=== PATIENT | male | born 1950 | race Two or more races ===

== ENCOUNTER 2017-05-21 13:53 | Inpatient (IN) | payer OTHER ==
[2017-05-21 15:09] VITALS: BMI 19.8
--- NOTE | 2017-05-21 17:49 | HP ---
CIWA Score - CIWA Score Nausea/Vomitin-Mild Nausea/No Vomiting Muscle Tremors: 4-Moderate,w/Arms Extend Anxiety: 4-Mod. Anxious/Guarded Agitation: 4-Moderately Restless Paroxysmal Sweats: 1-Minimal Palms Moist Orientation: 1-Uncertain about Date Tacttile Disturbances: 0-None Auditory Disturbances: 0-None Visual Disturbances: 0-None Headache: 1-Very Mild CIWA-Ar Total Score: 16 Admission ROS BHS - HPI Chief Complaint: withdrawal sx Allergies/Adverse Reactions: Allergies Allergy/AdvReac Type Severity Reaction Status Date / Time Penicillins Allergy Severe Rash Verified 05/21/17 17:47 History of Present Illness: 67 years old male with long history of alcohol nicotine dependence has asthma left eye surgery x10 years go and depression is admitted to detox Exam Limitations: No Limitations - Ebola screening Have you traveled outside of the country in the last 21 days: No Have you had contact with anyone from an Ebola affected area: No Have you been sick,other than usual withdrawal symptoms: No Do you have a fever: No - Review of Systems Constitutional: Chills, Loss of Appetite, Changes in sleep, Unintentional Wgt. Loss, Unexplained wgt Loss EENT: reports: Blurred Vision (left eye glaucoma surgery x 10 years ago) Respiratory: reports: SOB with Exertion Cardiac: reports: No Symptoms Reported GI: reports: Nausea, Poor Appetite, Poor Fluid Intake, Abdominal cramping : reports: No Symptoms Reported Musculoskeletal: reports: Back Pain, Joint Pain (arthritis), Muscle Weakness ( legs cane) Integumentary: reports: Dryness Neuro: reports: Seizure (2013 alcohol withdrawal related), Tremors, Weakness ( legs) Endocrine: reports: No Symptoms Reported Hematology: reports: No Symptoms Reported Psychiatric: reports: Judgement Intact, Depressed Other Systems: Reviewed and Negative Patient History - Patient Medical History Hx Anemia: No Hx Asthma: Yes Hx Chronic Obstructive Pulmonary Disease (COPD): No Hx Cancer: No Hx Cardiac Disorders: No Hx Congestive Heart Failure: No Hx Hypertension: No Hx Hypercholesterolemia: No Hx Pacemaker: No HX Cerebrovascular Accident: No Hx Seizures: No Hx Dementia: No Hx Diabetes: No Hx Gastrointestinal Disorders: No Hx Liver Disease: No Hx Genitourinary Disorders: No Hx Sexually Transmitted Disorders: No Hx Renal Disease (ESRD): No Hx Thyroid Disease: No Hx Human Immunodeficiency Virus (HIV): No Hx Hepatitis C: No Hx Depression: Yes Hx Suicide Attempt: No Hx Bipolar Disorder: No Hx Schizophrenia: No - Patient Surgical History Past Surgical History: Yes Hx Neurologic Surgery: No Hx Cataract Extraction: Yes (L EYE X2 "glaucoma") Hx Cardiac Surgery: No Hx Lung Surgery: No Hx Breast Surgery: No Hx Breast Biopsy: No Hx Abdominal Surgery: No Hx Appendectomy: No Hx Cholecystectomy: No Hx Genitourinary Surgery: No Hx Orthopedic Surgery: No Anesthesia Reaction: No - PPD History Previous Implant?: Yes Documented Results: Negative w/proof Implanted On Prior [facility] Admission?: Yes Date: 07/19/16 PPD to be Administered?: No - Smoking Cessation Smoking history: Current every day smoker Have you smoked in the past 12 months: Yes Aproximately how many cigarettes per day: 20 Cigars Per Day: 0 Hx Chewing Tobacco Use: No Initiated information on smoking cessation: Yes 'Breaking Loose' booklet given: 05/21/17 - Substance & Tx. History Hx Alcohol Use: Yes Hx Substance Use: No Substance Use Type: Alcohol Hx Substance Use Treatment: Yes (09/04-09/08/17 [place]) - Substances Abused Alcohol Route: Oral Frequency: Daily Amount used: 2 6pks beer Age of first use: 13 Date of Last Use: 05/21/17 Family Disease History - Family Disease History Family Disease History: Other: Father (alcohol,), Brother (alcohol, ) Admission Physical Exam S - Vital Signs Vital Signs: Vital Signs - 24 hr 05/21/17 15:07 Temperature 98 F Pulse Rate 80 Respiratory 19 Rate Blood Pressure 104/65 - Physical General Appearance: Yes: Appropriately Dressed, Mild Distress, Alcohol on Breath , Thin, Tremorous, Irritable, Sweating, Anxious HEENTM: Yes: Hearing grossly Normal, Normal ENT Inspection, Normocephalic, Normal Voice Respiratory: Yes: Chest Non-Tender, No Respiratory Distress, No Accessory Muscle Use, Wheezing, Hyperresonant Neck: Yes: Supple, Trachea in good position Breast: Yes: Breasts Symetrical Cardiology: Yes: Regular Rhythm, Regular Rate, S1, S2 Abdominal: Yes: Non Tender, Soft Genitourinary: Yes: Within Normal Limits Back: Yes: Normal Inspection Musculoskeletal: Yes: Gait Steady (cane), Back pain, Muscle weakness (legs) Extremities: Yes: Normal Range of Motion, Non-Tender, Tremors Neurological: Yes: Alert, Motor Strength 5/5, Normal Response, Depressed Affect Integumentary: Yes: Dry, Warm Lymphatic: Yes: Within Normal Limits - Diagnostic (1) Alcohol dependence with uncomplicated withdrawal Current Visit: Yes Status: Acute (2) Nicotine dependence Current Visit: Yes Status: Acute Qualifiers: Nicotine product type: cigarettes Substance use status: in withdrawal Qualified Code(s): F17.213 - Nicotine dependence, cigarettes, with withdrawal (3) Arthritis Current Visit: Yes Status: Chronic (4) Asthma Current Visit: Yes Status: Chronic (5) Blindness of left eye Current Visit: Yes Status: Chronic Comment: X 20+ YEARS (6) Depression Current Visit: Yes Status: Suspected Qualifiers: Depression Type: dysthymia Qualified Code(s): F34.1 - Dysthymic disorder (7) Dry skin Current Visit: Yes Status: Acute Comment: EUCER[place] Cleared for Admission S - Detox or Rehab [facility] Level of Care: Medically Managed Detox Regimen/Protocol: Librium S Breath Alcohol Content Breath Alcohol Content: 0.166 Urine Drug Screen - Results Drug Screen Negative: Yes
[2017-05-21] MEDS ORDERED: NICOTINE POLACRILEX 4 MG GUM BC PRN (17:51)
[2017-05-21] MEDS ORDERED: LOPERAMIDE HCL 2 MG CAPSULE PO PRN (17:51)
[2017-05-21] MEDS ORDERED: chlordiazePOXIDE HCL 25 MG CAPSULE PO PRN (17:51)
[2017-05-21] MEDS ORDERED: diphenhydrAMINE HCL 50 MG CAPSULE PO PRN (17:51)
[2017-05-21] MEDS ORDERED: MENTHOL/PHENOL 1 EACH UD MM PRN (17:51)
[2017-05-21] MEDS ORDERED: P-EPHED 60MG/TRIPROLIDI 2.5MG TABLET PO PRN (17:51)
[2017-05-21] MEDS ORDERED: MAGNESIUM CITRATE 300 ML BOTTLE PO PRN (17:51)
[2017-05-21] MEDS ORDERED: hydrOXYzine PAMOATE 50 MG CAPSULE (FP) PO PRN (17:51)
[2017-05-21] MEDS ORDERED: MAGNESIUM HYDROX 2400MG/30ML ORAL SUSPENSION 30 ML CUP PO PRN (17:51)
[2017-05-21] MEDS ORDERED: ACETAMINOPHEN 325 MG TABLET (FP) PO PRN (17:51)
[2017-05-21] MEDS ORDERED: guaiFENesin/D-METHORPHAN HB 10 ML UNIT-DOSE CUPS PO PRN (17:51)
[2017-05-21] MEDS ORDERED: ALBUTEROL SO4 2.5/IPRATROPIUM 0.5 INH SOL 3 ML VIAL.NEB. NEB PRN (17:54)
[2017-05-21] MEDS: chlordiazePOXIDE HCL 25 MG CAPSULE PO SCH (22:19)
[2017-05-21] MEDS: THIAMINE HCL 100 MG TABLET (FP) PO SCH (22:20)
[2017-05-21] MEDS: MINERAL OIL/PETROLAT/WATER TOPICAL CREAM 113 GM JAR TP SCH (22:20)
[2017-05-21] MEDS: ALBUTEROL SO4 6.7 GM HFA INHALER IH PRN (22:23)
[2017-05-22 02:25] LABS: URINE APPEARANCE CLEAR; URINE BILIRUBIN NEGATIVE (NEGATIVE); URINE BLOOD NEGATIVE (NEGATIVE); URINE COLOR COLORLESS; URINE GLUCOSE (UA) NEGATIVE (NEGATIVE); URINE KETONE NEGATIVE (NEGATIVE); URINE LEUK ESTERASE NEGATIVE (NEGATIVE); URINE NITRITE NEGATIVE (NEGATIVE); URINE PROTEIN NEGATIVE (NEGATIVE); URINE UROBILINOGEN NEGATIVE E.U./dl (0.2-1.0)
[2017-05-22] MEDS: chlordiazePOXIDE HCL 25 MG CAPSULE PO SCH ×4 (05:21→22:20)
[2017-05-22 10:06] LABS: MCH 35.9 pg (25.7-33.7); MCHC 33.9 g/dl (32.0-35.9); MEAN CELL VOLUME 106.1 fl (80-96); MEAN PLT VOLUME 9.6 fl (7.5-11.1); PLATELET COUNT 121 K/MM3 (134-434); RDW 13.9 % (11.9-15.9); WHITE BLOOD COUNT 4.3 K/mm3 (4.0-10.0)
[2017-05-22 10:41] LABS: HIV 1 & 2 AB NEGATIVE; HIV 1 AGp24 NEGATIVE
[2017-05-22] MEDS: PRENATAL VITAMINS W/ FOLIC ACID TABLET (FP) PO SCH (10:54)
[2017-05-22] MEDS: IBUPROFEN 600 MG TABLET (FP) PO PRN (10:55)
[2017-05-22] MEDS: NICOTINE 21 MG/24 HOURS TOPICAL PATCH TD SCH (10:56)
[2017-05-22] MEDS: ALBUTEROL SO4 6.7 GM HFA INHALER IH PRN (10:57)
[2017-05-22 11:07] LABS: ALBUMIN 3.4 g/dl (3.4-5.0); ALK PHOS 108 U/L (45-117); ANION GAP 10 (8-16); BILIRUBIN,TOTAL 0.5 mg/dL (0.2-1.0); CALCIUM 8.5 mg/dL (8.5-10.1); CO2 27 mmol/L (21-32); CREATININE 0.6 mg/dL (0.7-1.3); GLUCOSE,RANDOM 149 mg/dL (74-106); SGOT/AST 63 U/L (15-37); SGPT/ALT 46 U/L (12-78); TOT PROT 6.6 g/dl (6.4-8.2)
[2017-05-22 11:15] LABS: PLATELET ESTIMATE SLT DECREASED (NORMAL)
--- NOTE | 2017-05-22 12:36 | EKG ---
Test Reason : Blood Pressure : / mmHG Vent. Rate : 074 BPM Atrial Rate : 074 BPM P-R Int : 134 ms QRS Dur : 110 ms QT Int : 400 ms P-R-T Axes : 077 063 059 degrees QTc Int : 444 ms NORMAL SINUS RHYTHM SEPTAL INFARCT , AGE UNDETERMINED ABNORMAL ECG NO PREVIOUS ECGS AVAILABLE Confirmed by LC WEINSTEIN MD ([id number]) on 05/22/2017 12:35:49 PM Referred By: Confirmed By:LC WEINSTEIN MD
--- NOTE | 2017-05-22 12:44 | PN ---
S CIWA - CIWA Score Nausea/Vomitin Muscle Tremors: 3 Anxiety: 3 Agitation: 3 Paroxysmal Sweats: 1-Minimal Palms Moist Orientation: 0-Oriented Tacttile Disturbances: 1-Very Mild Itch/Numbness Auditory Disturbances: 1-Very Mild Visual Disturbances: 1-Very Mild Sensitivity Headache: 2-Mild CIWA-Ar Total Score: 18 S Progress Note (SOAP) Subjective: ALERT,IRRITABLE,ANXIOUS,INTERRUPTED SLEEP,TREMOR Objective: 05/22/17 12:41 Vital Signs Temperature 98.4 F 05/22/17 09:32 Pulse Rate 96 H 05/22/17 09:32 Respiratory Rate 18 05/22/17 09:32 Blood Pressure 124/60 05/22/17 09:32 O2 Sat by Pulse Oximetry (%) EKG NSR NO CHEST PAIN,NO SOB,NO DIZZINESS 05/22/17 12:42 Laboratory Last Values WBC 4.3 K/mm3 (4.0-10.0) 05/22/17 06:00 RBC 3.80 M/mm3 (4.00-5.60) L 05/22/17 06:00 Hgb 13.7 GM/dL (11.7-16.9) D 05/22/17 06:00 Hct 40.3 % (35.4-49) 05/22/17 06:00 MCV 106.1 fl (80-96) H 05/22/17 06:00 MCHC 33.9 g/dl (32.0-35.9) 05/22/17 06:00 RDW 13.9 % (11.9-15.9) 05/22/17 06:00 Plt Count 121 K/MM3 (134-434) L D 05/22/17 06:00 MPV 9.6 fl (7.5-11.1) 05/22/17 06:00 Platelet Estimate Slt decreased (NORMAL) 05/22/17 06:00 Platelet Comment No clumping noted 05/22/17 06:00 Macrocytosis 1+ 05/22/17 06:00 Sodium 139 mmol/L (136-145) 05/22/17 06:00 Potassium 4.0 mmol/L (3.5-5.1) 05/22/17 06:00 Chloride 102 mmol/L (98-107) 05/22/17 06:00 Carbon Dioxide 27 mmol/L (21-32) 05/22/17 06:00 Anion Gap 10 (8-16) 05/22/17 06:00 BUN 6 mg/dL (7-18) L D 05/22/17 06:00 Creatinine 0.6 mg/dL (0.7-1.3) L D 05/22/17 06:00 Creat Clearance w eGFR > 60 (>60) 05/22/17 06:00 Random Glucose 149 mg/dL (74-106) H D 05/22/17 06:00 Calcium 8.5 mg/dL (8.5-10.1) 05/22/17 06:00 Total Bilirubin 0.5 mg/dL (0.2-1.0) D 05/22/17 06:00 AST 63 U/L (15-37) H D 05/22/17 06:00 ALT 46 U/L (12-78) D 05/22/17 06:00 Alkaline Phosphatase 108 U/L (45-117) D 05/22/17 06:00 Total Protein 6.6 g/dl (6.4-8.2) 05/22/17 06:00 Albumin 3.4 g/dl (3.4-5.0) 05/22/17 06:00 Urine Color Colorless 05/22/17 00:30 Urine Appearance Clear 05/22/17 00:30 Urine pH 5.0 (5.0-8.0) 05/22/17 00:30 Ur Specific [place] <= 1.005 (1.005-1.025) 05/22/17 00:30 Urine Protein Negative (NEGATIVE) 05/22/17 00:30 Urine Glucose (UA) Negative (NEGATIVE) 05/22/17 00:30 Urine Ketones Negative (NEGATIVE) 05/22/17 00:30 Urine Blood Negative (NEGATIVE) 05/22/17 00:30 Urine Nitrite Negative (NEGATIVE) 05/22/17 00:30 Urine Bilirubin Negative (NEGATIVE) 05/22/17 00:30 Urine Urobilinogen Negative E.U./dl (0.2-1.0) 05/22/17 00:30 Ur Leukocyte Esterase Negative (NEGATIVE) 05/22/17 00:30 RPR Titer Nonreactive (NONREACTIVE) 05/22/17 06:00 HIV 1&2 Antibody Screen Negative 05/21/17 06:00 HIV P24 Antigen Negative 05/21/17 06:00 Assessment: 05/22/17 12:43 WITHDRAWAL SYMPTOM Plan: CONTINUE DETOX
--- NOTE | 2017-05-22 13:10 | CONSULT ---
[facility] Psychiatric Consult - Data Date of interview: 05/22/17 Admission source: [facility] Identifying data: This is 67 years old male with no psychiatric hospiutalization history intoxicated with: Alcohol and Nicotine Substance Abuse History: - Smoking Cessation. Smoking history: Current every day smoker. Have you smoked in the past 12 months: Yes. Aproximately how many cigarettes per day: 20. Cigars Per Day: 0. Hx Chewing Tobacco Use: No. Initiated information on smoking cessation: Yes. 'Breaking Loose' booklet given : 05/21/17. - Substance & Tx. History. Hx Alcohol Use: Yes. Hx Substance Use : No. Substance Use Type: Alcohol. Hx Substance Use Treatment: Yes (09/04- [place]). - Substances Abused. Alcohol. Route: Oral. Frequency: Daily. Amount used: 2 6pks beer. Age of first use: 13. Date of Last Use: Medical History: Osteoarthritis, Asthma, Left eye blindness, Syncope history Psychiatric History: Patient reports history of insomnia and anxiety, reports taking priormto admission: Ambien 10mg po qhs Physical/Sexual Abuse/Trauma History: Denies Additional Comment: Ambien 10mg po qhs Mental Status Exam - Mental Status Exam Cognitive Function: Fair Patient Appearance: Unkempt Mood: Sad Affect: Flat Patient Behavior: Talkative Speech Pattern: Delayed Voice Loudness: Normal Thought Process: Circumstantial Thought Disorder: Being Controlled Hallucinations: Denies Suicidal Ideation: Denies Homicidal Ideation: Denies Insight/Judgement: Fair Sleep: Difficulty falling asleep Appetite: Weight loss Muscle strength/Tone: Mild Hypotonicity Gait/Station: Shuffling Additional Comments: Ambien 10mg po qhs Psychiatric Findings - Problem List ([place] 1, 2,3) (1) Alcohol dependence with uncomplicated withdrawal Current Visit: Yes Status: Acute (2) Nicotine dependence Current Visit: Yes Status: Acute Qualifiers: Nicotine product type: cigarettes Substance use status: in withdrawal Qualified Code(s): F17.213 - Nicotine dependence, cigarettes, with withdrawal (3) Alcohol dependence Current Visit: No Status: Acute (4) Drug-induced mood disorder Current Visit: No Status: Suspected - Initial Treatment Plan Initial Treatment Plan: Ambien 10mg po qhs
[2017-05-22] MEDS: MAG HYDROX/AL HYDROX/SIMETH 30 ML UNIT-DOSE CUP PO PRN (18:28)
[2017-05-22] MEDS: MINERAL OIL/PETROLAT/WATER TOPICAL CREAM 113 GM JAR TP SCH (22:20)
[2017-05-22] MEDS: THIAMINE HCL 100 MG TABLET (FP) PO SCH (22:21)
[2017-05-22] MEDS: ZOLPIDEM TARTRATE 5 MG TABLET PO PRN (22:22)
[2017-05-23] MEDS: chlordiazePOXIDE HCL 25 MG CAPSULE PO SCH ×3 (06:02→17:13)
[2017-05-23] MEDS: ALBUTEROL SO4 6.7 GM HFA INHALER IH PRN ×3 (06:03→22:21)
[2017-05-23] MEDS: PRENATAL VITAMINS W/ FOLIC ACID TABLET (FP) PO SCH (10:27)
[2017-05-23] MEDS: NICOTINE 21 MG/24 HOURS TOPICAL PATCH TD SCH (10:28)
--- NOTE | 2017-05-23 10:56 | PN ---
S CIWA - CIWA Score Nausea/Vomitin Muscle Tremors: 3 Anxiety: 3 Agitation: 3 Paroxysmal Sweats: 1-Minimal Palms Moist Orientation: 0-Oriented Tacttile Disturbances: 1-Very Mild Itch/Numbness Auditory Disturbances: 1-Very Mild Visual Disturbances: 1-Very Mild Sensitivity Headache: 2-Mild CIWA-Ar Total Score: 18 S Progress Note (SOAP) Subjective: ALERT,IRRITABLE,ANXIOUS,INTERRUPTED SLEEP,TREMOR,IRRITATION IN LEFT EYE S/P SURGERY IN LEFT EYE GLAUCOMA LEGALLY BLIND LEFT FC HAS BEEN FOLLOW WITH PMD AND CHIEF EXECUTIVE OFFICER AT [facility] Objective: 05/23/17 10:55 Vital Signs Temperature 96.6 F L 05/23/17 06:00 Pulse Rate 75 05/23/17 06:00 Respiratory Rate 18 05/23/17 06:00 Blood Pressure 103/68 05/23/17 06:00 O2 Sat by Pulse Oximetry (%) Laboratory Last Values WBC 4.3 K/mm3 (4.0-10.0) 05/22/17 06:00 RBC 3.80 M/mm3 (4.00-5.60) L 05/22/17 06:00 Hgb 13.7 GM/dL (11.7-16.9) D 05/22/17 06:00 Hct 40.3 % (35.4-49) 05/22/17 06:00 MCV 106.1 fl (80-96) H 05/22/17 06:00 MCHC 33.9 g/dl (32.0-35.9) 05/22/17 06:00 RDW 13.9 % (11.9-15.9) 05/22/17 06:00 Plt Count 121 K/MM3 (134-434) L D 05/22/17 06:00 MPV 9.6 fl (7.5-11.1) 05/22/17 06:00 Platelet Estimate Slt decreased (NORMAL) 05/22/17 06:00 Platelet Comment No clumping noted 05/22/17 06:00 Macrocytosis 1+ 05/22/17 06:00 Sodium 139 mmol/L (136-145) 05/22/17 06:00 Potassium 4.0 mmol/L (3.5-5.1) 05/22/17 06:00 Chloride 102 mmol/L (98-107) 05/22/17 06:00 Carbon Dioxide 27 mmol/L (21-32) 05/22/17 06:00 Anion Gap 10 (8-16) 05/22/17 06:00 BUN 6 mg/dL (7-18) L D 05/22/17 06:00 Creatinine 0.6 mg/dL (0.7-1.3) L D 05/22/17 06:00 Creat Clearance w eGFR > 60 (>60) 05/22/17 06:00 Random Glucose 149 mg/dL (74-106) H D 05/22/17 06:00 Calcium 8.5 mg/dL (8.5-10.1) 05/22/17 06:00 Total Bilirubin 0.5 mg/dL (0.2-1.0) D 05/22/17 06:00 AST 63 U/L (15-37) H D 05/22/17 06:00 ALT 46 U/L (12-78) D 05/22/17 06:00 Alkaline Phosphatase 108 U/L (45-117) D 05/22/17 06:00 Total Protein 6.6 g/dl (6.4-8.2) 05/22/17 06:00 Albumin 3.4 g/dl (3.4-5.0) 05/22/17 06:00 Urine Color Colorless 05/22/17 00:30 Urine Appearance Clear 05/22/17 00:30 Urine pH 5.0 (5.0-8.0) 05/22/17 00:30 Ur Specific [place] <= 1.005 (1.005-1.025) 05/22/17 00:30 Urine Protein Negative (NEGATIVE) 05/22/17 00:30 Urine Glucose (UA) Negative (NEGATIVE) 05/22/17 00:30 Urine Ketones Negative (NEGATIVE) 05/22/17 00:30 Urine Blood Negative (NEGATIVE) 05/22/17 00:30 Urine Nitrite Negative (NEGATIVE) 05/22/17 00:30 Urine Bilirubin Negative (NEGATIVE) 05/22/17 00:30 Urine Urobilinogen Negative E.U./dl (0.2-1.0) 05/22/17 00:30 Ur Leukocyte Esterase Negative (NEGATIVE) 05/22/17 00:30 RPR Titer Nonreactive (NONREACTIVE) 05/22/17 06:00 Hepatitis C Antibody <0.1 s/co ratio (0.0-0.9) 05/21/17 06:00 HIV 1&2 Antibody Screen Negative 05/21/17 06:00 HIV P24 Antigen Negative 05/21/17 06:00 Assessment: 05/23/17 10:56 WITHDRAWAL SYMPTOM Plan: CONTINUE DETOX,ARTIFICIAL TEAR DROP LEFT TID
[2017-05-23] MEDS: ARTIFICIAL TEARS (POLYVINYL ALCOHOL 1.4%) OPTH DROPS OS SCH ×3 (13:51→22:16)
[2017-05-23] MEDS: IBUPROFEN 600 MG TABLET (FP) PO PRN ×2 (15:19→22:18)
[2017-05-23] MEDS: MAG HYDROX/AL HYDROX/SIMETH 30 ML UNIT-DOSE CUP PO PRN (18:32)
[2017-05-23] MEDS: chlordiazePOXIDE 5 MG CAPSULE PO SCH (22:17)
[2017-05-23] MEDS: THIAMINE HCL 100 MG TABLET (FP) PO SCH (22:17)
[2017-05-23] MEDS: MINERAL OIL/PETROLAT/WATER TOPICAL CREAM 113 GM JAR TP SCH (22:19)
[2017-05-23] MEDS: ZOLPIDEM TARTRATE 5 MG TABLET PO PRN (22:22)
[2017-05-24] MEDS: chlordiazePOXIDE 5 MG CAPSULE PO SCH ×3 (05:36→17:29)
[2017-05-24] MEDS: ALBUTEROL SO4 6.7 GM HFA INHALER IH PRN (05:37)
[2017-05-24] MEDS: PRENATAL VITAMINS W/ FOLIC ACID TABLET (FP) PO SCH (10:17)
[2017-05-24] MEDS: NICOTINE 21 MG/24 HOURS TOPICAL PATCH TD SCH (10:18)
[2017-05-24] MEDS: IBUPROFEN 600 MG TABLET (FP) PO PRN ×2 (10:19→22:21)
[2017-05-24] MEDS: ARTIFICIAL TEARS (POLYVINYL ALCOHOL 1.4%) OPTH DROPS OS SCH ×4 (10:20→22:07)
--- NOTE | 2017-05-24 10:34 | PN ---
S Progress Note (SOAP) Subjective: ALERT,IRRITABLE,ANXIOUS,INTERRUPTED SLEEP Objective: 05/24/17 10:32 Vital Signs Temperature 97.9 F 05/24/17 10:12 Pulse Rate 76 05/24/17 10:12 Respiratory Rate 18 05/24/17 10:12 Blood Pressure 113/70 05/24/17 10:12 O2 Sat by Pulse Oximetry (%) Assessment: 05/24/17 10:32 WITHDRAWAL SYMPTOM Plan: CONTINUE DETOX,DISCHARGE IN AM
[2017-05-24] MEDS: MAG HYDROX/AL HYDROX/SIMETH 30 ML UNIT-DOSE CUP PO PRN (15:05)
[2017-05-24] MEDS: chlordiazePOXIDE HCL 10 MG CAPSULE PO SCH (22:07)
[2017-05-24] MEDS: ZOLPIDEM TARTRATE 5 MG TABLET PO PRN (22:07)
[2017-05-24] MEDS: THIAMINE HCL 100 MG TABLET (FP) PO SCH (22:07)
[2017-05-24] MEDS: MINERAL OIL/PETROLAT/WATER TOPICAL CREAM 113 GM JAR TP SCH (22:16)
[2017-05-25 05:57] VITALS: BP 120/67; PULSE 72; TEMP 96.3
[2017-05-25] MEDS: chlordiazePOXIDE HCL 10 MG CAPSULE PO SCH (06:15)
--- NOTE | 2017-05-25 12:40 | DS ---
[facility] Detox Discharge Summary Admission Date: 05/21/17 Discharge Date: 05/25/17 - History Present History: Alcohol Dependence Additional Comments: ADVISED PATIENT TO FOLLOW-UP WITH [facility] / REHAB MEDICAL PROVIDER AFTER DISCHARGE FROM [facility]. Pertinent Past History: Asthma, Depression, Arthritis, Blindness of Left Eye. - Physical Exam Results Vital Signs: Vital Signs Temperature 96.3 F L 05/25/17 05:56 Pulse Rate 72 05/25/17 05:56 Respiratory Rate 18 05/25/17 05:56 Blood Pressure 120/67 05/25/17 05:56 O2 Sat by Pulse Oximetry (%) Pertinent Admission Physical Exam Findings: WITHDRAWAL SYMPTOMS. Laboratory Tests 05/21/17 05/21/17 05/22/17 06:00 06:00 00:30 WBC RBC Hgb Hct MCV MCHC RDW Plt Count MPV Platelet Estimate Platelet Comment Macrocytosis Sodium Potassium Chloride Carbon Dioxide Anion Gap BUN Creatinine Creat Clearance w eGFR Random Glucose Calcium Total Bilirubin AST ALT Alkaline Phosphatase Total Protein Albumin Urine Color Colorless Urine Appearance Clear Urine pH 5.0 Ur Specific [place] <= 1.005 Urine Protein Negative Urine Glucose (UA) Negative Urine Ketones Negative Urine Blood Negative Urine Nitrite Negative Urine Bilirubin Negative Urine Urobilinogen Negative Ur Leukocyte Esterase Negative RPR Titer Hepatitis C Antibody <0.1 HIV 1&2 Antibody Screen Negative HIV P24 Antigen Negative 05/22/17 05/22/17 05/22/17 06:00 06:00 06:00 WBC 4.3 RBC 3.80 L Hgb 13.7 D Hct 40.3 MCV 106.1 H MCHC 33.9 RDW 13.9 Plt Count 121 L D MPV 9.6 Platelet Estimate Slt decreased Platelet Comment No clumping noted Macrocytosis 1+ Sodium 139 Potassium 4.0 Chloride 102 Carbon Dioxide 27 Anion Gap 10 BUN 6 L D Creatinine 0.6 L D Creat Clearance w eGFR > 60 Random Glucose 149 H D Calcium 8.5 Total Bilirubin 0.5 D AST 63 H D ALT 46 D Alkaline Phosphatase 108 D Total Protein 6.6 Albumin 3.4 Urine Color Urine Appearance Urine pH Ur Specific [place] Urine Protein Urine Glucose (UA) Urine Ketones Urine Blood Urine Nitrite Urine Bilirubin Urine Urobilinogen Ur Leukocyte Esterase RPR Titer Nonreactive Hepatitis C Antibody HIV 1&2 Antibody Screen HIV P24 Antigen LABS NOTED. - Treatment Hospital Course: Detox Protocol Followed, Detoxed Safely, Responded well, Discharged Condition Good Patient has Accepted a Rehab Referral to: PATIENT GOING HOME NOW. WILL PURSUE REHAB ADMISSION AT LATER DATE. - Medication Discharge Medications: Ambulatory Orders Albuterol Sulfate Inhaler - [Ventolin HFA Inhaler -] 2 inh IH Q4H PRN #1 inhaler 05/25/17 - Diagnosis (1) Alcohol dependence with uncomplicated withdrawal Status: Acute (2) Dry skin Status: Acute (3) Arthritis Status: Chronic (4) Asthma Status: Chronic (5) Blindness of left eye Status: Chronic (6) Drug-induced mood disorder Status: Suspected (7) Nicotine dependence Status: Chronic Qualifiers: Nicotine product type: cigarettes Substance use status: in withdrawal Qualified Code(s): F17.213 - Nicotine dependence, cigarettes, with withdrawal - AMA Did Patient Leave Against Medical Advice: No
== END 2017-05-25 09:28 | disposition home or self-care (01) | DRG 897 ==
LOC: YASAS 13:53 → Y6N 18:06
PROVIDERS: ADMIT Internal Medicine; ATTEND Internal Medicine
PROC: HZ2ZZZZ Detoxification Services for Substance Abuse Treatment (ICD-10-PCS; principal; 2017-05-25)
DX: F10.230 Alcohol dependence with withdrawal, uncomplicated (principal); F17.213 Nicotine dependence, cigarettes, with withdrawal; F19.24 Other psychoactive substance dependence with psychoactive substance-induced mood disorder; F34.1 Dysthymic disorder; M12.9 Arthropathy, unspecified; J45.909 Unspecified asthma, uncomplicated; L85.3 Xerosis cutis; H54.42 Blindness, left eye, normal vision right eye
CPT/HCPCS: 36415; 80053; 81003; 85027; 86593; 86803; 87389; 93005; 93010

== ENCOUNTER 2017-10-21 09:45 | Inpatient (IN) | payer OTHER ==
[2017-10-21 10:49] VITALS: BMI 19.8
--- NOTE | 2017-10-21 12:08 | HP ---
CIWA Score - CIWA Score Nausea/Vomitin-No Nausea/No Vomiting Muscle Tremors: 4-Moderate,w/Arms Extend Anxiety: 3 Agitation: 3 Paroxysmal Sweats: 3 Orientation: 0-Oriented Tacttile Disturbances: 0-None Auditory Disturbances: 0-None Visual Disturbances: 0-None Headache: 1-Very Mild CIWA-Ar Total Score: 14 Admission ROS BHS - HPI Chief Complaint: I am here for detox. Allergies/Adverse Reactions: Allergies Allergy/AdvReac Type Severity Reaction Status Date / Time Penicillins Allergy Severe Rash Verified 10/21/17 11:10 History of Present Illness: pt is a 67yr old male with a history of alcohol dependence seeking detox for treatment. Exam Limitations: No Limitations - Ebola screening Have you traveled outside of the country in the last 21 days: No (N) Have you had contact with anyone from an Ebola affected area: No Have you been sick,other than usual withdrawal symptoms: No Do you have a fever: No - Review of Systems Constitutional: Chills, Diaphoresis, Loss of Appetite, Night Sweats, Changes in sleep, Weight Stable EENT: reports: No Symptoms Reported, Tearing Respiratory: reports: No Symptoms reported Cardiac: reports: No Symptoms Reported GI: reports: No Symptoms Reported : reports: No Symptoms Reported Musculoskeletal: reports: Joint Pain, Other (chronic arthritis) Integumentary: reports: Flushing, Sweating Neuro: reports: Tingling, Tremors Endocrine: reports: Excessive Sweating, Flushing Hematology: reports: No Symptoms Reported Psychiatric: reports: Judgement Intact, Mood/Affect Appropiate, Orientated x3, Agitated, Anxious Other Systems: Reviewed and Negative Patient History - Patient Medical History Hx Anemia: No Hx Asthma: Yes (Pt is on MDI) Hx Chronic Obstructive Pulmonary Disease (COPD): No Hx Cancer: No Hx Cardiac Disorders: No Hx Congestive Heart Failure: No Hx Hypertension: No Hx Hypercholesterolemia: No Hx Pacemaker: No HX Cerebrovascular Accident: No Hx Seizures: No Hx Dementia: No Hx Diabetes: No Hx Gastrointestinal Disorders: No Hx Liver Disease: No Hx Genitourinary Disorders: No Hx Sexually Transmitted Disorders: No Hx Renal Disease (ESRD): No Hx Thyroid Disease: No Hx Human Immunodeficiency Virus (HIV): No (negative) Hx Hepatitis C: No (negative) Hx Depression: No Hx Suicide Attempt: No Hx Bipolar Disorder: No Hx Schizophrenia: No Other Medical History: insomnia - Patient Surgical History Past Surgical History: Yes Hx Neurologic Surgery: No Hx Cataract Extraction: Yes (L EYE X2 "glaucoma") Hx Cardiac Surgery: No Hx Lung Surgery: No Hx Breast Surgery: No Hx Breast Biopsy: No Hx Abdominal Surgery: No Hx Appendectomy: No Hx Cholecystectomy: No Hx Genitourinary Surgery: No Hx Section: No Hx Orthopedic Surgery: No Anesthesia Reaction: No - PPD History Previous Implant?: Yes Documented Results: Negative w/proof Implanted On Prior [facility] Admission?: Yes Date: 07/19/16 Results: 0 mm PPD to be Administered?: No - Reproductive History Patient is a Female of Child Bearing Age (11 -55 yrs old): No - Smoking Cessation Smoking history: Current every day smoker Have you smoked in the past 12 months: Yes Aproximately how many cigarettes per day: 20 Cigars Per Day: 0 Hx Chewing Tobacco Use: No Initiated information on smoking cessation: Yes 'Breaking Loose' booklet given: 10/21/17 - Substance & Tx. History Hx Alcohol Use: Yes Hx Substance Use: No Substance Use Type: Alcohol Hx Substance Use Treatment: Yes (07/2016 [facility] detox ) - Substances Abused Alcohol Route: Oral Frequency: Daily Amount used: 10 beers and up Age of first use: 13 Date of Last Use: 10/21/17 Family Disease History - Family Disease History Family Disease History: Other: Father (alcohol,), Brother (alcohol, ) Admission Physical Exam BHS - Vital Signs Vital Signs: Vital Signs - 24 hr 10/21/17 10:47 Temperature 98.1 F Pulse Rate 75 Respiratory 18 Rate Blood Pressure 113/74 - Physical General Appearance: Yes: Appropriately Dressed, Tremorous, Irritable, Sweating, Anxious HEENTM: Yes: Hearing grossly Normal, Normal Voice Respiratory: Yes: Lungs Clear, Normal Breath Sounds, No Respiratory Distress Neck: Yes: No masses,lesions,Nodules Breast: Yes: Within Normal Limits Cardiology: Yes: Regular Rhythm, Regular Rate, S1, S2 Abdominal: Yes: Normal Bowel Sounds Genitourinary: Yes: Within Normal Limits Back: Yes: Normal Inspection Musculoskeletal: Yes: full range of Motion Extremities: Yes: Normal Capillary Refill, Normal Inspection, Tremors Neurological: Yes: Fully Oriented, Alert, Normal Response Integumentary: Yes: Within Normal Limits, Normal Color, Diaphoresis Lymphatic: Yes: Within Normal Limits - Diagnostic (1) Alcohol dependence with uncomplicated withdrawal Current Visit: Yes Status: Chronic (2) Arthritis Current Visit: Yes Status: Chronic (3) Asthma Current Visit: Yes Status: Chronic (4) Blindness of left eye Current Visit: No Status: Chronic Comment: X 20+ YEARS (5) Nicotine dependence Current Visit: No Status: Chronic Qualifiers: Nicotine product type: cigarettes Substance use status: uncomplicated Qualified Code(s): F17.210 - Nicotine dependence, cigarettes, uncomplicated Cleared for Admission [facility] - Detox or Rehab [facility] Level of Care: Medically Managed Detox Regimen/Protocol: Librium S Breath Alcohol Content Breath Alcohol Content: 0.068 Urine Drug Screen - Results Drug Screen Negative: Yes
[2017-10-21] MEDS ORDERED: guaiFENesin/D-METHORPHAN HB 10 ML UNIT-DOSE CUPS PO PRN (12:24)
[2017-10-21] MEDS ORDERED: P-EPHED 60MG/TRIPROLIDI 2.5MG TABLET PO PRN (12:24)
[2017-10-21] MEDS ORDERED: chlordiazePOXIDE HCL 25 MG CAPSULE PO PRN (12:24)
[2017-10-21] MEDS ORDERED: LOPERAMIDE HCL 2 MG CAPSULE PO PRN (12:24)
[2017-10-21] MEDS ORDERED: MENTHOL/PHENOL 1 EACH UD MM PRN (12:24)
[2017-10-21] MEDS ORDERED: ACETAMINOPHEN 325 MG TABLET (FP) PO PRN (12:24)
[2017-10-21] MEDS ORDERED: MAGNESIUM HYDROX 2400MG/30ML ORAL SUSPENSION 30 ML CUP PO PRN (12:24)
[2017-10-21] MEDS ORDERED: MAGNESIUM CITRATE 300 ML BOTTLE PO PRN (12:24)
[2017-10-21] MEDS ORDERED: NICOTINE POLACRILEX 4 MG GUM BUC PRN (12:24)
[2017-10-21] MEDS ORDERED: hydrOXYzine PAMOATE 50 MG CAPSULE (FP) PO PRN (12:24)
[2017-10-21] MEDS ORDERED: chlordiazePOXIDE HCL 25 MG CAPSULE PO ONE (12:31)
[2017-10-21] MEDS: chlordiazePOXIDE HCL 25 MG CAPSULE PO SCH ×2 (17:20→22:23)
[2017-10-21 18:01] LABS: URINE APPEARANCE SLCLOUDY; URINE BILIRUBIN NEGATIVE (NEGATIVE); URINE BLOOD NEGATIVE (NEGATIVE); URINE COLOR YELLOW; URINE GLUCOSE (UA) NEGATIVE (NEGATIVE); URINE KETONE NEGATIVE (NEGATIVE); URINE NITRITE NEGATIVE (NEGATIVE); URINE PROTEIN NEGATIVE (NEGATIVE); URINE UROBILINOGEN NEGATIVE mg/dL (0.2-1.0)
[2017-10-21 21:51] LABS: URINE LEUK ESTERASE Negative (NEGATIVE)
[2017-10-21] MEDS: THIAMINE HCL 100 MG TABLET (FP) PO SCH (22:23)
[2017-10-21] MEDS: ALBUTEROL SO4 18 GM HFA INHALER IH PRN (22:25)
[2017-10-22] MEDS: chlordiazePOXIDE HCL 25 MG CAPSULE PO SCH ×4 (05:44→22:01)
[2017-10-22 09:57] LABS: MCH 36.2 pg (25.7-33.7); MCHC 33.4 g/dl (32.0-35.9); MEAN CELL VOLUME 108.5 fl (80-96); MEAN PLT VOLUME 9.4 fl (7.5-11.1); PLATELET COUNT 188 K/MM3 (134-434); RDW 13.9 % (11.9-15.9); WHITE BLOOD COUNT 5.7 K/mm3 (4.0-10.0)
--- NOTE | 2017-10-22 10:13 | EKG ---
Test Reason : Blood Pressure : / mmHG Vent. Rate : 071 BPM Atrial Rate : 071 BPM P-R Int : 128 ms QRS Dur : 100 ms QT Int : 384 ms P-R-T Axes : 069 050 062 degrees QTc Int : 417 ms NORMAL SINUS RHYTHM NORMAL ECG WHEN COMPARED WITH ECG OF 21-MAY-2017 17:45, CRITERIA FOR SEPTAL INFARCT ARE NO LONGER PRESENT Confirmed by GRAY DELGADO MD ([id number]) on 10/22/2017 10:13:17 AM Referred By: Confirmed By:GRAY DELGADO MD
[2017-10-22 10:36] LABS: ALBUMIN 3.3 g/dl (3.4-5.0); ALK PHOS 100 U/L (45-117); ANION GAP 9 (8-16); BILIRUBIN,TOTAL 0.6 mg/dL (0.2-1.0); CALCIUM 8.2 mg/dL (8.5-10.1); CO2 27 mmol/L (21-32); CREATININE 0.6 mg/dL (0.7-1.3); GLUCOSE,RANDOM 146 mg/dL (74-106); SGOT/AST 27 U/L (15-37); SGPT/ALT 23 U/L (12-78); TOT PROT 6.4 g/dl (6.4-8.2)
--- NOTE | 2017-10-22 10:45 | PN ---
[facility] CIWA - CIWA Score Nausea/Vomitin-No Nausea/No Vomiting Muscle Tremors: 4-Moderate,w/Arms Extend Anxiety: 4-Mod. Anxious/Guarded Agitation: 4-Moderately Restless Paroxysmal Sweats: 1-Minimal Palms Moist Orientation: 0-Oriented Tacttile Disturbances: 3-Moderate Itch/Numb/Burn Auditory Disturbances: 0-None Visual Disturbances: 0-None Headache: 0-None Present CIWA-Ar Total Score: 16 BHS Progress Note (SOAP) Subjective: ANXIETY,SWEATS,SLIGHT TREMORS, INTERMITTENT SLEEP. Objective: 10/22/17 10:44 Vital Signs Temperature 96.8 F L 10/22/17 09:53 Pulse Rate 80 10/22/17 09:53 Respiratory Rate 18 10/22/17 09:53 Blood Pressure 79/55 10/22/17 09:53 O2 Sat by Pulse Oximetry (%) Laboratory Last Values WBC 5.7 K/mm3 (4.0-10.0) D 10/22/17 05:30 RBC 3.54 M/mm3 (4.00-5.60) L 10/22/17 05:30 Hgb 12.8 GM/dL (11.7-16.9) 10/22/17 05:30 Hct 38.4 % (35.4-49) 10/22/17 05:30 MCV 108.5 fl (80-96) H 10/22/17 05:30 MCH 36.2 pg (25.7-33.7) H 10/22/17 05:30 MCHC 33.4 g/dl (32.0-35.9) 10/22/17 05:30 RDW 13.9 % (11.9-15.9) 10/22/17 05:30 Plt Count 188 K/MM3 (134-434) D 10/22/17 05:30 MPV 9.4 fl (7.5-11.1) 10/22/17 05:30 Sodium 139 mmol/L (136-145) 10/22/17 05:30 Potassium 4.0 mmol/L (3.5-5.1) 10/22/17 05:30 Chloride 103 mmol/L (98-107) 10/22/17 05:30 Carbon Dioxide 27 mmol/L (21-32) 10/22/17 05:30 Anion Gap 9 (8-16) 10/22/17 05:30 BUN 8 mg/dL (7-18) D 10/22/17 05:30 Creatinine 0.6 mg/dL (0.7-1.3) L 10/22/17 05:30 Creat Clearance w eGFR > 60 (>60) 10/22/17 05:30 Random Glucose 146 mg/dL (74-106) H 10/22/17 05:30 Calcium 8.2 mg/dL (8.5-10.1) L 10/22/17 05:30 Total Bilirubin 0.6 mg/dL (0.2-1.0) 10/22/17 05:30 AST 27 U/L (15-37) D 10/22/17 05:30 ALT 23 U/L (12-78) D 10/22/17 05:30 Alkaline Phosphatase 100 U/L (45-117) 10/22/17 05:30 Total Protein 6.4 g/dl (6.4-8.2) 10/22/17 05:30 Albumin 3.3 g/dl (3.4-5.0) L 10/22/17 05:30 Urine Color Yellow 10/21/17 15:30 Urine Appearance Slcloudy 10/21/17 15:30 Urine pH 5.0 (5.0-8.0) 10/21/17 15:30 Ur Specific [place] 1.016 (1.001-1.035) 10/21/17 15:30 Urine Protein Negative (NEGATIVE) 10/21/17 15:30 Urine Glucose (UA) Negative (NEGATIVE) 10/21/17 15:30 Urine Ketones Negative (NEGATIVE) 10/21/17 15:30 Urine Blood Negative (NEGATIVE) 10/21/17 15:30 Urine Nitrite Negative (NEGATIVE) 10/21/17 15:30 Urine Bilirubin Negative (NEGATIVE) 10/21/17 15:30 Urine Urobilinogen Negative mg/dL (0.2-1.0) 10/21/17 15:30 Ur Leukocyte Esterase Negative (NEGATIVE) 10/21/17 15:30 Assessment: 10/22/17 10:45 WITHDRAWAL SX Plan: CONTINUE DETOX
[2017-10-22] MEDS: PRENATAL VITAMINS W/ FOLIC ACID TABLET (FP) PO SCH (11:22)
[2017-10-22] MEDS: NICOTINE 21 MG/24 HOURS TOPICAL PATCH TD SCH (11:22)
--- NOTE | 2017-10-22 14:18 | CONSULT ---
[facility] Psychiatric Consult - Data Date of interview: 10/22/17 Admission source: [facility] Identifying data: Readmission to [facility] for this 67 y/o male seeking detox treatment on for alcohol dependence.Patient is single,a father of two,domiciled,disabled and supported on SSI benefits. Substance Abuse History: Confirmed by patient in this interview. See [facility] report for details.Smoking history: Current every day smoker. Have you smoked in the past 12 months: Yes. Aproximately how many cigarettes per day: 20. Cigars Per Day: 0. Hx Chewing Tobacco Use: No. Initiated information on smoking cessation: Yes. 'Breaking Loose' booklet given: 10/21/17. - Substance & Tx. History. Hx Alcohol Use: Yes. Hx Substance Use: No. Substance Use Type : Alcohol. Hx Substance Use Treatment: Yes (07/2016 [facility] detox ). - Substances Abused. Alcohol. Route: Oral. Frequency: Daily. Amount used: 10 beers and up. Age of first use: 13. Date of Last Use: 10/21/17 Medical History: Arthritis,bronchial asthma and glaucoma (left eye). Psychiatric History: Patient denies. Physical/Sexual Abuse/Trauma History: No reported history of abuse. Additional Comment: Drug Screen is negative. Mental Status Exam - Mental Status Exam Alert and Oriented to: Time, Place, Person Cognitive Function: Grossly Intact Patient Appearance: Well Groomed Mood: Hopeful, Euthymic Affect: Appropriate, Normal Range Patient Behavior: Fatigued, Appropriate (friendly), Cooperative Speech Pattern: Clear Voice Loudness: Normal Thought Process: Goal Oriented Thought Disorder: Not Present Hallucinations: Denies Suicidal Ideation: Denies Homicidal Ideation: Denies Insight/Judgement: Poor Sleep: Poorly, Difficulty falling asleep Appetite: Good Gait/Station: Other (ambulates with a cane) Psychiatric Findings - Problem List ([place] 1, 2,3) (1) Alcohol dependence with uncomplicated withdrawal Current Visit: Yes Status: Acute (2) Nicotine dependence Current Visit: Yes Status: Acute Qualifiers: Nicotine product type: cigarettes Substance use status: in withdrawal Qualified Code(s): F17.213 - Nicotine dependence, cigarettes, with withdrawal (3) Insomnia Current Visit: Yes Status: Acute - Initial Treatment Plan Initial Treatment Plan: Psychoeducation.Support.Sleep hygiene.Detoxification.Fall precautions.Ambien 5 mg po hs prn.Side effects/ benefits discussed with the patient.He is in agreement with this careplan.Observation.
[2017-10-22] MEDS: IBUPROFEN 400 MG TABLET (FP) PO PRN (17:26)
[2017-10-22] MEDS: ZOLPIDEM TARTRATE 5 MG TABLET PO PRN (22:01)
[2017-10-22] MEDS: ALBUTEROL SO4 18 GM HFA INHALER IH PRN (22:02)
[2017-10-22] MEDS: THIAMINE HCL 100 MG TABLET (FP) PO SCH (22:02)
[2017-10-23] MEDS: chlordiazePOXIDE HCL 25 MG CAPSULE PO SCH ×2 (05:51→10:23)
[2017-10-23] MEDS: PRENATAL VITAMINS W/ FOLIC ACID TABLET (FP) PO SCH (10:22)
[2017-10-23] MEDS: ALBUTEROL SO4 18 GM HFA INHALER IH PRN (10:23)
[2017-10-23] MEDS: NICOTINE 21 MG/24 HOURS TOPICAL PATCH TD SCH (10:23)
--- NOTE | 2017-10-23 15:11 | PN ---
[facility] CIWA - CIWA Score Nausea/Vomitin-No Nausea/No Vomiting Muscle Tremors: 4-Moderate,w/Arms Extend Anxiety: 3 Agitation: 4-Moderately Restless Paroxysmal Sweats: No Perspiration Orientation: 2-Disoriented Date<2 days Tacttile Disturbances: 2-Mild Itch/Numbness/Burn Auditory Disturbances: 0-None Visual Disturbances: 2-Mild Sensitivity Headache: 0-None Present CIWA-Ar Total Score: 17 S Progress Note (SOAP) Subjective: Body Aches, Tremors, Interrupted Sleep. Objective: PT. A & O X 2 (UNCERTAIN ABOUT DAY / DATE). PT. OBSERVED AMBULATING ON UNIT. NO ACUTE DISTRESS. 10/23/17 15:13 Vital Signs Temperature 96.0 F L 10/23/17 14:44 Pulse Rate 68 10/23/17 14:44 Respiratory Rate 18 10/23/17 14:44 Blood Pressure 114/64 10/23/17 14:44 O2 Sat by Pulse Oximetry (%) Laboratory Tests 10/21/17 10/22/17 10/22/17 15:30 05:30 05:30 WBC 5.7 D RBC 3.54 L Hgb 12.8 Hct 38.4 MCV 108.5 H MCH 36.2 H MCHC 33.4 RDW 13.9 Plt Count 188 D MPV 9.4 Sodium 139 Potassium 4.0 Chloride 103 Carbon Dioxide 27 Anion Gap 9 BUN 8 D Creatinine 0.6 L Creat Clearance w eGFR > 60 Random Glucose 146 H Calcium 8.2 L Total Bilirubin 0.6 AST 27 D ALT 23 D Alkaline Phosphatase 100 Total Protein 6.4 Albumin 3.3 L Urine Color Yellow Urine Appearance Slcloudy Urine pH 5.0 Ur Specific [place] 1.016 Urine Protein Negative Urine Glucose (UA) Negative Urine Ketones Negative Urine Blood Negative Urine Nitrite Negative Urine Bilirubin Negative Urine Urobilinogen Negative Ur Leukocyte Esterase Negative RPR Titer 10/22/17 05:30 WBC RBC Hgb Hct MCV MCH MCHC RDW Plt Count MPV Sodium Potassium Chloride Carbon Dioxide Anion Gap BUN Creatinine Creat Clearance w eGFR Random Glucose Calcium Total Bilirubin AST ALT Alkaline Phosphatase Total Protein Albumin Urine Color Urine Appearance Urine pH Ur Specific [place] Urine Protein Urine Glucose (UA) Urine Ketones Urine Blood Urine Nitrite Urine Bilirubin Urine Urobilinogen Ur Leukocyte Esterase RPR Titer Nonreactive LABS NOTED Assessment: 10/23/17 15:15 WITHDRAWAL SYMPTOMS. Plan: CONTINUE DETOX. INCREASE DAILY PO FLUID INTAKE. BGM ACBK FOR ELEVATED ADMISSION RANDOM GLUCOSE LEVEL.
[2017-10-23] MEDS: chlordiazePOXIDE 5 MG CAPSULE PO SCH ×2 (17:11→22:11)
[2017-10-23] MEDS: IBUPROFEN 400 MG TABLET (FP) PO PRN (17:14)
[2017-10-23] MEDS: ZOLPIDEM TARTRATE 5 MG TABLET PO PRN (22:11)
[2017-10-23] MEDS: THIAMINE HCL 100 MG TABLET (FP) PO SCH (22:11)
[2017-10-23] MEDS: MAG HYDROX/AL HYDROX/SIMETH 30 ML UNIT-DOSE CUP PO PRN (22:56)
[2017-10-24] MEDS: chlordiazePOXIDE 5 MG CAPSULE PO SCH ×2 (05:49→10:15)
[2017-10-24] MEDS: NICOTINE 21 MG/24 HOURS TOPICAL PATCH TD SCH (10:15)
[2017-10-24] MEDS: PRENATAL VITAMINS W/ FOLIC ACID TABLET (FP) PO SCH (10:15)
[2017-10-24] MEDS: ALBUTEROL SO4 18 GM HFA INHALER IH PRN (10:16)
--- NOTE | 2017-10-24 10:48 | PN ---
BHS Progress Note (SOAP) Subjective: ANXIETY,SWEATS, FATIGUE. Objective: 10/24/17 10:47 Vital Signs Temperature 97.3 F L 10/24/17 10:00 Pulse Rate 74 10/24/17 10:00 Respiratory Rate 18 10/24/17 10:00 Blood Pressure 85/54 10/24/17 10:00 O2 Sat by Pulse Oximetry (%) Laboratory Last Values WBC 5.7 K/mm3 (4.0-10.0) D 10/22/17 05:30 RBC 3.54 M/mm3 (4.00-5.60) L 10/22/17 05:30 Hgb 12.8 GM/dL (11.7-16.9) 10/22/17 05:30 Hct 38.4 % (35.4-49) 10/22/17 05:30 MCV 108.5 fl (80-96) H 10/22/17 05:30 MCH 36.2 pg (25.7-33.7) H 10/22/17 05:30 MCHC 33.4 g/dl (32.0-35.9) 10/22/17 05:30 RDW 13.9 % (11.9-15.9) 10/22/17 05:30 Plt Count 188 K/MM3 (134-434) D 10/22/17 05:30 MPV 9.4 fl (7.5-11.1) 10/22/17 05:30 Sodium 139 mmol/L (136-145) 10/22/17 05:30 Potassium 4.0 mmol/L (3.5-5.1) 10/22/17 05:30 Chloride 103 mmol/L (98-107) 10/22/17 05:30 Carbon Dioxide 27 mmol/L (21-32) 10/22/17 05:30 Anion Gap 9 (8-16) 10/22/17 05:30 BUN 8 mg/dL (7-18) D 10/22/17 05:30 Creatinine 0.6 mg/dL (0.7-1.3) L 10/22/17 05:30 Creat Clearance w eGFR > 60 (>60) 10/22/17 05:30 POC Glucometer 125 UNITS (80-120) 10/24/17 05:48 Random Glucose 146 mg/dL (74-106) H 10/22/17 05:30 Calcium 8.2 mg/dL (8.5-10.1) L 10/22/17 05:30 Total Bilirubin 0.6 mg/dL (0.2-1.0) 10/22/17 05:30 AST 27 U/L (15-37) D 10/22/17 05:30 ALT 23 U/L (12-78) D 10/22/17 05:30 Alkaline Phosphatase 100 U/L (45-117) 10/22/17 05:30 Total Protein 6.4 g/dl (6.4-8.2) 10/22/17 05:30 Albumin 3.3 g/dl (3.4-5.0) L 10/22/17 05:30 Urine Color Yellow 10/21/17 15:30 Urine Appearance Slcloudy 10/21/17 15:30 Urine pH 5.0 (5.0-8.0) 10/21/17 15:30 Ur Specific [place] 1.016 (1.001-1.035) 10/21/17 15:30 Urine Protein Negative (NEGATIVE) 10/21/17 15:30 Urine Glucose (UA) Negative (NEGATIVE) 10/21/17 15:30 Urine Ketones Negative (NEGATIVE) 10/21/17 15:30 Urine Blood Negative (NEGATIVE) 10/21/17 15:30 Urine Nitrite Negative (NEGATIVE) 10/21/17 15:30 Urine Bilirubin Negative (NEGATIVE) 10/21/17 15:30 Urine Urobilinogen Negative mg/dL (0.2-1.0) 10/21/17 15:30 Ur Leukocyte Esterase Negative (NEGATIVE) 10/21/17 15:30 RPR Titer Nonreactive (NONREACTIVE) 10/22/17 05:30 Assessment: 10/24/17 10:47 WITHDRAWAL SX Plan: CONTINUE DETOX
[2017-10-24] MEDS ORDERED: BRIMONIDINE TARTRATE 0.1% OPHTHALMIC 5 ML BOTTLE OU SCH (12:30)
[2017-10-24] MEDS: DORZOLAMIDE 2% HCL OPHTHALMIC SOLUTION 10 ML BOTTLE OU SCH ×2 (13:34→22:05)
[2017-10-24] MEDS: MAG HYDROX/AL HYDROX/SIMETH 30 ML UNIT-DOSE CUP PO PRN ×2 (16:32→23:21)
[2017-10-24] MEDS: chlordiazePOXIDE HCL 10 MG CAPSULE PO SCH ×2 (17:21→22:05)
[2017-10-24] MEDS: THIAMINE HCL 100 MG TABLET (FP) PO SCH (22:05)
[2017-10-24] MEDS: BRIMONIDINE TARTRATE 0.2% OPHTHALMIC 5 ML BOTTLE OU SCH (22:05)
[2017-10-24] MEDS: LATANOPROST 0.005% OPHTH SOLN 2.5ML BOTTLE OS SCH (22:05)
[2017-10-24] MEDS: ZOLPIDEM TARTRATE 5 MG TABLET PO PRN (22:08)
[2017-10-25] MEDS: chlordiazePOXIDE HCL 10 MG CAPSULE PO SCH ×2 (06:02→10:10)
[2017-10-25] MEDS: DORZOLAMIDE 2% HCL OPHTHALMIC SOLUTION 10 ML BOTTLE OU SCH ×3 (06:03→22:14)
[2017-10-25] MEDS: BRIMONIDINE TARTRATE 0.2% OPHTHALMIC 5 ML BOTTLE OU SCH ×2 (10:10→22:14)
[2017-10-25] MEDS: PRENATAL VITAMINS W/ FOLIC ACID TABLET (FP) PO SCH (10:10)
[2017-10-25] MEDS: NICOTINE 21 MG/24 HOURS TOPICAL PATCH TD SCH (10:11)
[2017-10-25] MEDS: ALBUTEROL SO4 18 GM HFA INHALER IH PRN (10:13)
--- NOTE | 2017-10-25 12:12 | PN ---
BHS Progress Note (SOAP) Subjective: Sweating, H/A, Stomach Cramping. Objective: PT. A & O X 2 (UNCERTAIN ABOUT DAY / DATE). PT. OBSERVED AMBULATING ON UNIT WITH ASSISTANCE OF A CANE. NO ACUTE DISTRESS. 10/25/17 12:08 Vital Signs Temperature 96.9 F L 10/25/17 10:00 Pulse Rate 76 10/25/17 10:00 Respiratory Rate 16 10/25/17 10:00 Blood Pressure 88/55 10/25/17 10:00 O2 Sat by Pulse Oximetry (%) Laboratory Tests 10/21/17 10/22/17 10/22/17 15:30 05:30 05:30 WBC 5.7 D RBC 3.54 L Hgb 12.8 Hct 38.4 MCV 108.5 H MCH 36.2 H MCHC 33.4 RDW 13.9 Plt Count 188 D MPV 9.4 Sodium 139 Potassium 4.0 Chloride 103 Carbon Dioxide 27 Anion Gap 9 BUN 8 D Creatinine 0.6 L Creat Clearance w eGFR > 60 POC Glucometer Random Glucose 146 H Calcium 8.2 L Total Bilirubin 0.6 AST 27 D ALT 23 D Alkaline Phosphatase 100 Total Protein 6.4 Albumin 3.3 L Urine Color Yellow Urine Appearance Slcloudy Urine pH 5.0 Ur Specific [place] 1.016 Urine Protein Negative Urine Glucose (UA) Negative Urine Ketones Negative Urine Blood Negative Urine Nitrite Negative Urine Bilirubin Negative Urine Urobilinogen Negative Ur Leukocyte Esterase Negative RPR Titer 10/22/17 10/24/17 10/25/17 05:30 05:48 06:01 WBC RBC Hgb Hct MCV MCH MCHC RDW Plt Count MPV Sodium Potassium Chloride Carbon Dioxide Anion Gap BUN Creatinine Creat Clearance w eGFR POC Glucometer 125 122 Random Glucose Calcium Total Bilirubin AST ALT Alkaline Phosphatase Total Protein Albumin Urine Color Urine Appearance Urine pH Ur Specific [place] Urine Protein Urine Glucose (UA) Urine Ketones Urine Blood Urine Nitrite Urine Bilirubin Urine Urobilinogen Ur Leukocyte Esterase RPR Titer Nonreactive LABS NOTED. Assessment: 10/25/17 12:09 WITHDRAWAL SYMPTOMS. Plan: CONTINUE DETOX.
[2017-10-25] MEDS: HYDROCORTISONE 0.5% TOPICAL OINTMENT TUBE TP SCH ×2 (13:55→22:14)
[2017-10-25] MEDS: ZOLPIDEM TARTRATE 5 MG TABLET PO PRN (21:58)
[2017-10-25] MEDS: THIAMINE HCL 100 MG TABLET (FP) PO SCH (22:13)
[2017-10-25] MEDS: LATANOPROST 0.005% OPHTH SOLN 2.5ML BOTTLE OS SCH (22:14)
[2017-10-26] MEDS: DORZOLAMIDE 2% HCL OPHTHALMIC SOLUTION 10 ML BOTTLE OU SCH (05:24)
[2017-10-26 06:04] VITALS: BP 95/50; PULSE 67; TEMP 97.5
--- NOTE | 2017-10-26 11:57 | DS ---
[facility] Detox Discharge Summary Admission Date: 10/21/17 Discharge Date: 10/26/17 - History Present History: Alcohol Dependence Pertinent Past History: Asthma Blindness left eye - Physical Exam Results Vital Signs: Vital Signs Temperature 97.5 F L 10/26/17 06:03 Pulse Rate 67 10/26/17 06:03 Respiratory Rate 20 10/26/17 06:03 Blood Pressure 95/50 10/26/17 06:03 O2 Sat by Pulse Oximetry (%) Pertinent Admission Physical Exam Findings: Withdrawal symptoms Laboratory Tests 10/21/17 10/22/17 10/22/17 15:30 05:30 05:30 WBC 5.7 D RBC 3.54 L Hgb 12.8 Hct 38.4 MCV 108.5 H MCH 36.2 H MCHC 33.4 RDW 13.9 Plt Count 188 D MPV 9.4 Sodium 139 Potassium 4.0 Chloride 103 Carbon Dioxide 27 Anion Gap 9 BUN 8 D Creatinine 0.6 L Creat Clearance w eGFR > 60 POC Glucometer Random Glucose 146 H Calcium 8.2 L Total Bilirubin 0.6 AST 27 D ALT 23 D Alkaline Phosphatase 100 Total Protein 6.4 Albumin 3.3 L Urine Color Yellow Urine Appearance Slcloudy Urine pH 5.0 Ur Specific [place] 1.016 Urine Protein Negative Urine Glucose (UA) Negative Urine Ketones Negative Urine Blood Negative Urine Nitrite Negative Urine Bilirubin Negative Urine Urobilinogen Negative Ur Leukocyte Esterase Negative RPR Titer 10/22/17 10/24/17 10/25/17 05:30 05:48 06:01 WBC RBC Hgb Hct MCV MCH MCHC RDW Plt Count MPV Sodium Potassium Chloride Carbon Dioxide Anion Gap BUN Creatinine Creat Clearance w eGFR POC Glucometer 125 122 Random Glucose Calcium Total Bilirubin AST ALT Alkaline Phosphatase Total Protein Albumin Urine Color Urine Appearance Urine pH Ur Specific [place] Urine Protein Urine Glucose (UA) Urine Ketones Urine Blood Urine Nitrite Urine Bilirubin Urine Urobilinogen Ur Leukocyte Esterase RPR Titer Nonreactive 10/26/17 05:27 WBC RBC Hgb Hct MCV MCH MCHC RDW Plt Count MPV Sodium Potassium Chloride Carbon Dioxide Anion Gap BUN Creatinine Creat Clearance w eGFR POC Glucometer 118 Random Glucose Calcium Total Bilirubin AST ALT Alkaline Phosphatase Total Protein Albumin Urine Color Urine Appearance Urine pH Ur Specific [place] Urine Protein Urine Glucose (UA) Urine Ketones Urine Blood Urine Nitrite Urine Bilirubin Urine Urobilinogen Ur Leukocyte Esterase RPR Titer Labs noted - Treatment Hospital Course: Detox Protocol Followed, Detoxed Safely, Responded well, Discharged Condition Good - Medication Discharge Medications: Ambulatory Orders Albuterol Sulfate Inhaler - [Ventolin HFA Inhaler -] 2 inh IH Q4H PRN #1 inhaler 05/25/17 Ibuprofen 800 mg PO Q6H PRN 10/21/17 Brinzolamide/Brimonidine Tart [Simbrinza 1%-0.2% Eye Drops] 1 drop OU BID Latanoprost 0.005% Eye Drops [Xalatan 0.005% Eye Drops -] 1 drop OS HS 10/24/17 - Diagnosis (1) Alcohol dependence with uncomplicated withdrawal Status: Acute (2) Asthma Status: Chronic (3) Insomnia Status: Chronic (4) Nicotine dependence Status: Chronic Qualifiers: Nicotine product type: cigarettes Substance use status: in withdrawal Qualified Code(s): F17.213 - Nicotine dependence, cigarettes, with withdrawal (5) Blindness of left eye Status: Chronic - AMA Did Patient Leave Against Medical Advice: No (F/U with PCP in 1-2 weeks)
== END 2017-10-26 09:38 | disposition home or self-care (01) | DRG 897 ==
LOC: YASAS 09:45 → Y3N 12:03
PROVIDERS: ADMIT Internal Medicine; ATTEND Internal Medicine
PROC: HZ2ZZZZ Detoxification Services for Substance Abuse Treatment (ICD-10-PCS; principal; 2017-10-21)
DX: F10.230 Alcohol dependence with withdrawal, uncomplicated (principal); F17.210 Nicotine dependence, cigarettes, uncomplicated; F19.24 Other psychoactive substance dependence with psychoactive substance-induced mood disorder; G47.00 Insomnia, unspecified; R55 Syncope and collapse; J45.909 Unspecified asthma, uncomplicated; J04.0 Acute laryngitis; H54.40 Blindness, one eye, unspecified eye; L85.3 Xerosis cutis; M19.90 Unspecified osteoarthritis, unspecified site
CPT/HCPCS: 36415; 80053; 81003; 85027; 86593; 93005; 93010

== ENCOUNTER 2018-04-24 19:09 | Inpatient (IN) | payer OTHER ==
[2018-04-24 20:21] VITALS: BMI 18.5
[2018-04-24] MEDS ORDERED: MELATONIN 5 MG TABLETS PO PRN (22:00)
--- NOTE | 2018-04-24 23:39 | HP ---
CIWA Score - CIWA Score Nausea/Vomitin-No Nausea/No Vomiting Muscle Tremors: 3 Anxiety: 3 Agitation: 4-Moderately Restless Paroxysmal Sweats: 3 Orientation: 0-Oriented Tacttile Disturbances: 0-None Auditory Disturbances: 0-None Visual Disturbances: 0-None Headache: 3-Moderate CIWA-Ar Total Score: 16 Admission ROS BHS - HPI Chief Complaint: Alcohol withdrawal symptoms Allergies/Adverse Reactions: Allergies Allergy/AdvReac Type Severity Reaction Status Date / Time Penicillins Allergy Severe Rash Verified 04/24/18 21:29 History of Present Illness: 68 years old male a long history of alcohol dependence is seeking admission to detox. Patient has been to previous detox and reports 5 years of sobriety. He reports medical history of arthritis and asthma. He denies suicide attempt and suicidal ideation at this time. Exam Limitations: Physical Impairment (ambulates with cane) - Ebola screening Have you had contact with anyone from an Ebola affected area: No Have you been sick,other than usual withdrawal symptoms: No Do you have a fever: No - Review of Systems Constitutional: Chills, Malaise, Night Sweats, Weakness EENT: reports: Other (glaucoma) Respiratory: reports: No Symptoms reported Cardiac: reports: No Symptoms Reported GI: reports: Poor Appetite, Poor Fluid Intake, Abdominal cramping : reports: No Symptoms Reported Musculoskeletal: reports: Back Pain Integumentary: reports: Flushing Neuro: reports: Tremors Endocrine: reports: No Symptoms Reported Hematology: reports: No Symptoms Reported Psychiatric: reports: Judgement Intact Other Systems: Reviewed and Negative Patient History - Patient Medical History Hx Anemia: No Hx Asthma: Yes (Pt is on MDI) Hx Chronic Obstructive Pulmonary Disease (COPD): No Hx Cancer: No Hx Cardiac Disorders: No Hx Congestive Heart Failure: No Hx Hypertension: No Hx Hypercholesterolemia: No Hx Pacemaker: No HX Cerebrovascular Accident: No Hx Seizures: No Hx Dementia: No Hx Diabetes: No Hx Gastrointestinal Disorders: No Hx Liver Disease: No Hx Genitourinary Disorders: No Hx Sexually Transmitted Disorders: No Hx Renal Disease (ESRD): No Hx Thyroid Disease: No Hx Human Immunodeficiency Virus (HIV): No (Negative) Hx Hepatitis C: No (negative) Hx Depression: No Hx Suicide Attempt: No Hx Bipolar Disorder: No Hx Schizophrenia: No Other Medical History: Arthritis - Not on medication - Patient Surgical History Past Surgical History: Yes Hx Neurologic Surgery: No Hx Cataract Extraction: Yes (L EYE X2 "glaucoma") Hx Cardiac Surgery: No Hx Lung Surgery: No Hx Breast Surgery: No Hx Breast Biopsy: No Hx Abdominal Surgery: No Hx Appendectomy: No Hx Cholecystectomy: No Hx Genitourinary Surgery: No Hx Section: No Hx Orthopedic Surgery: No Anesthesia Reaction: No - PPD History Previous Implant?: Yes Documented Results: Negative w/proof Implanted On Prior [facility] Admission?: Yes Date: 10/23/17 Results: 0MM PPD to be Administered?: No - Reproductive History Patient is a Female of Child Bearing Age (11 -55 yrs old): No (Male) Patient : No - Smoking Cessation Smoking history: Current every day smoker Have you smoked in the past 12 months: Yes Aproximately how many cigarettes per day: 20 Cigars Per Day: 0 Hx Chewing Tobacco Use: No Initiated information on smoking cessation: Yes 'Breaking Loose' booklet given: 04/24/18 - Substance & Tx. History Hx Alcohol Use: Yes Hx Substance Use: No Substance Use Type: Alcohol Hx Substance Use Treatment: Yes ([facility]) - Substances Abused Alcohol Route: Oral Frequency: Daily Amount used: 12 -16OZ BEER Age of first use: 16 Date of Last Use: 04/24/18 Family Disease History - Family Disease History Family Disease History: Other: Father (alcohol,), Brother (alcohol, ) Admission Physical Exam S - Vital Signs Vital Signs: Vital Signs - 24 hr 04/24/18 20:19 Temperature 97.2 F L Pulse Rate 78 Respiratory 17 Rate Blood Pressure 106/69 - Physical General Appearance: Yes: Mild Distress, Tremorous, Irritable, Sweating, Anxious HEENTM: Yes: EOMI, Normal ENT Inspection, Normocephalic, Normal Voice, RADHA Respiratory: Yes: Lungs Clear, Normal Breath Sounds, No Respiratory Distress Neck: Yes: Supple Breast: Yes: Breast Exam Deferred Cardiology: Yes: Regular Rhythm, Regular Rate, S1, S2 Abdominal: Yes: Normal Bowel Sounds Genitourinary: Yes: Within Normal Limits Back: Yes: Normal Inspection Musculoskeletal: Yes: Within Normal Limits Extremities: Yes: Tremors Neurological: Yes: Alert, Normal Mood/Affect Integumentary: Yes: Warm Lymphatic: Yes: Within Normal Limits - Diagnostic (1) Alcohol dependence with uncomplicated withdrawal Current Visit: Yes Status: Chronic (2) Nicotine dependence Current Visit: Yes Status: Chronic Qualifiers: Nicotine product type: cigarettes Substance use status: in withdrawal Qualified Code(s): F17.213 - Nicotine dependence, cigarettes, with withdrawal (3) Osteoarthritis Current Visit: Yes Status: Chronic Qualifiers: Osteoarthritis location: unspecified site Osteoarthritis type: primary Qualified Code(s): M19.91 - Primary osteoarthritis, unspecified site (4) Depression Current Visit: Yes Status: Chronic Qualifiers: Depression Type: dysthymia Qualified Code(s): F34.1 - Dysthymic disorder Cleared for Admission [facility] - Detox or Rehab [facility] Level of Care: Medically Managed Detox Regimen/Protocol: Librium [facility] Breath Alcohol Content Breath Alcohol Content: 0.104 Urine Drug Screen - Results Drug Screen Negative: Yes
[2018-04-24] MEDS ORDERED: P-EPHED 60MG/TRIPROLIDI 2.5MG TABLET PO PRN (23:44)
[2018-04-24] MEDS ORDERED: MAGNESIUM CITRATE 300 ML BOTTLE PO PRN (23:44)
[2018-04-24] MEDS ORDERED: chlordiazePOXIDE HCL 25 MG CAPSULE PO PRN (23:44)
[2018-04-24] MEDS ORDERED: MENTHOL/PHENOL 1 EACH UD MM PRN (23:44)
[2018-04-24] MEDS ORDERED: MAGNESIUM HYDROX 2400MG/30ML ORAL SUSPENSION 30 ML CUP PO PRN (23:44)
[2018-04-24] MEDS ORDERED: guaiFENesin/D-METHORPHAN HB 10 ML UNIT-DOSE CUPS PO PRN (23:44)
[2018-04-24] MEDS ORDERED: MAG HYDROX/AL HYDROX/SIMETH 30 ML UNIT-DOSE CUP PO PRN (23:44)
[2018-04-24] MEDS ORDERED: IBUPROFEN 400 MG TABLET (FP) PO PRN (23:44)
[2018-04-24] MEDS ORDERED: ACETAMINOPHEN 325 MG TABLET (FP) PO PRN (23:44)
[2018-04-24] MEDS ORDERED: LOPERAMIDE HCL 2 MG CAPSULE PO PRN (23:44)
[2018-04-24] MEDS ORDERED: chlordiazePOXIDE HCL 25 MG CAPSULE PO ONE (23:45)
[2018-04-24] MEDS ORDERED: ALBUTEROL SO4 18 GM HFA INHALER IH PRN (23:47)
[2018-04-25 01:30] LABS: URINE APPEARANCE CLEAR; URINE BILIRUBIN NEGATIVE (<2.0 mg/dL); URINE COLOR YELLOW; URINE GLUCOSE (UA) NEGATIVE (NEGATIVE); URINE KETONE NEGATIVE (NEGATIVE); URINE LEUK ESTERASE NEGATIVE (NEGATIVE); URINE NITRITE NEGATIVE (NEGATIVE); URINE PROTEIN NEGATIVE (NEGATIVE)
[2018-04-25] MEDS ORDERED: chlordiazePOXIDE HCL 25 MG CAPSULE PO PRN (02:13)
[2018-04-25] MEDS: chlordiazePOXIDE HCL 25 MG CAPSULE PO SCH ×6 (02:17→22:25)
[2018-04-25] MEDS ORDERED: chlordiazePOXIDE HCL 25 MG CAPSULE PO SCH (05:00)
--- NOTE | 2018-04-25 08:47 | EKG ---
Test Reason : Blood Pressure : / mmHG Vent. Rate : 070 BPM Atrial Rate : 070 BPM P-R Int : 134 ms QRS Dur : 106 ms QT Int : 412 ms P-R-T Axes : 073 063 059 degrees QTc Int : 444 ms NORMAL SINUS RHYTHM NORMAL ECG WHEN COMPARED WITH ECG OF 21-OCT-2017 15:17, NO SIGNIFICANT CHANGE WAS FOUND Confirmed by SANDY GONZALEZ, GRAY ([id number]) on 04/25/2018 8:46:50 AM Referred By: Jose Staples Confirmed By:GRAY DELGADO MD
[2018-04-25] MEDS ORDERED: PATIENT'S OWN MEDICATION (NON-FORMULARY) (Brinzolamide/Brimonidine Tart [Simbrinza 1%-0.2% OU SCH (10:00)
[2018-04-25 10:10] LABS: HEMATOCRIT 36.6 % (35.4-49); HEMOGLOBIN 12.5 GM/dL (11.7-16.9); MCH 35.4 pg (25.7-33.7); MCHC 34.3 g/dl (32.0-35.9); MEAN CELL VOLUME 103.4 fl (80-96); MEAN PLT VOLUME 8.4 fl (7.5-11.1); PLATELET COUNT 209 K/MM3 (134-434); RBC 3.54 M/mm3 (4.00-5.60); RDW 15.7 % (11.9-15.9); WHITE BLOOD COUNT 5.6 K/mm3 (4.0-10.0)
[2018-04-25 10:34] LABS: CHLORIDE 104 mmol/L (98-107); POTASSIUM 4.2 mmol/L (3.5-5.1); SODIUM 140 mmol/L (136-145)
[2018-04-25] MEDS: PRENATAL VITAMINS W/ FOLIC ACID TABLET (FP) PO SCH (10:38)
[2018-04-25] MEDS: NICOTINE 14 MG/24 HOURS TOPICAL PATCH TD SCH (10:38)
[2018-04-25 10:57] LABS: ALBUMIN 3.2 g/dl (3.4-5.0); ALK PHOS 133 U/L (45-117); ANION GAP 7 (8-16); BILIRUBIN,TOTAL 0.6 mg/dL (0.2-1.0); BLOOD UREA NITROGEN 15 mg/dL (7-18); CALCIUM 8.2 mg/dL (8.5-10.1); CO2 29 mmol/L (21-32); CREATININE 0.5 mg/dL (0.7-1.3); GLUCOSE,RANDOM 83 mg/dL (74-106); SGOT/AST 19 U/L (15-37); SGPT/ALT 14 U/L (12-78); TOT PROT 6.5 g/dl (6.4-8.2)
[2018-04-25] MEDS ORDERED: diphenhydrAMINE HCL 25 MG CAPSULE (FP) PO ONE (12:14)
--- NOTE | 2018-04-25 13:15 | PN ---
[facility] CIWA - CIWA Score Nausea/Vomitin-No Nausea/No Vomiting Muscle Tremors: 4-Moderate,w/Arms Extend Anxiety: 3 Agitation: 2 Paroxysmal Sweats: No Perspiration Orientation: 2-Disoriented Date<2 days Tacttile Disturbances: 2-Mild Itch/Numbness/Burn Auditory Disturbances: 0-None Visual Disturbances: 3-Moderate Sensitivity Headache: 0-None Present CIWA-Ar Total Score: 16 S Progress Note (SOAP) Subjective: Interrupted Sleep, Tremors, Body Aches, Itching. Objective: PATIENT A & O X 3, OBSERVED AMBULATING ON UNIT WITH ASSISTANCE OF A CANE. NO ACUTE DISTRESS. 04/25/18 13:33 Vital Signs Temperature 98.9 F 04/25/18 10:31 Pulse Rate 73 04/25/18 10:31 Respiratory Rate 16 04/25/18 10:31 Blood Pressure 109/62 04/25/18 10:31 O2 Sat by Pulse Oximetry (%) Laboratory Tests 04/24/18 04/25/18 04/25/18 23:50 07:50 07:50 WBC 5.6 RBC 3.54 L Hgb 12.5 Hct 36.6 MCV 103.4 H MCH 35.4 H MCHC 34.3 RDW 15.7 D Plt Count 209 MPV 8.4 D Sodium 140 Potassium 4.2 Chloride 104 Carbon Dioxide 29 Anion Gap 7 L BUN 15 D Creatinine 0.5 L Creat Clearance w eGFR > 60 Random Glucose 83 D Calcium 8.2 L Total Bilirubin 0.6 AST 19 D ALT 14 D Alkaline Phosphatase 133 H D Total Protein 6.5 Albumin 3.2 L Urine Color Yellow Urine Appearance Clear Urine pH 5.0 Ur Specific [place] 1.018 Urine Protein Negative Urine Glucose (UA) Negative Urine Ketones Negative Urine Blood Negative Urine Nitrite Negative Urine Bilirubin Negative Urine Urobilinogen 2.0 Ur Leukocyte Esterase Negative RPR Titer 04/25/18 07:50 WBC RBC Hgb Hct MCV MCH MCHC RDW Plt Count MPV Sodium Potassium Chloride Carbon Dioxide Anion Gap BUN Creatinine Creat Clearance w eGFR Random Glucose Calcium Total Bilirubin AST ALT Alkaline Phosphatase Total Protein Albumin Urine Color Urine Appearance Urine pH Ur Specific [place] Urine Protein Urine Glucose (UA) Urine Ketones Urine Blood Urine Nitrite Urine Bilirubin Urine Urobilinogen Ur Leukocyte Esterase RPR Titer Nonreactive LABS NOTED. Assessment: 05/26/18 13:36 WITHDRAWAL SYMPTOMS. Plan: CONTINUE DETOX. INCREASE DAILY PO FLUID INTAKE.
[2018-04-25] MEDS: AMMONIUM LACTATE 12% LOTION 225 GM BOTTLE TP SCH ×2 (14:02→23:00)
--- NOTE | 2018-04-25 14:31 | PN ---
[facility] Progress Note Note: At itme of admission, Patient reported that he takes two different prescribed eye drops (Latanoprost and Simbrinza) on a daily basis for treatment of Glaucoma. Patient reports that he takes one of the drops only in Left eye once daily at night and that he takes the other drop BID in both eyes. However, patient is unclear about which drop he puts only in left eye and which one that he puts in both eyes. Home medication directions show that Latanoprost is to be instilled in RIGHT EYE once daily. However, patient states that he puts drop for one eye only in LEFT EYE, NOT the Right one. Latanoprost, 0.005 % ordered to be instilled 1 Drop in Left Eye HS and Dorzalamide, 2% and Brimonidine Tartrate, 0.2 % both ordered (to replace Simbrinza) to be applied to bilateral eyes BID. Patient advised to follow-up after discharge from Detox with DIRECTOR OF SPORTS MEDICINE / Opthalmologist for further evaluation of this condition. Esa Hansen NP
[2018-04-25] MEDS ORDERED: LATANOPROST 0.005% OPHTH SOLN 2.5ML BOTTLE OS SCH (22:00)
[2018-04-25] MEDS: THIAMINE HCL 100 MG TABLET (FP) PO SCH (22:25)
[2018-04-25] MEDS: LATANOPROST 0.005% OPHTH SOLN 2.5ML BOTTLE OS SCH (22:58)
[2018-04-25] MEDS: DORZOLAMIDE 2% HCL OPHTHALMIC SOLUTION 10 ML BOTTLE OU SCH (22:59)
[2018-04-25] MEDS: BRIMONIDINE TARTRATE 0.2% OPHTHALMIC 5 ML BOTTLE OU SCH (23:00)
[2018-04-26] MEDS ORDERED: chlordiazePOXIDE 5 MG CAPSULE PO SCH (05:00)
[2018-04-26] MEDS: chlordiazePOXIDE HCL 25 MG CAPSULE PO SCH ×4 (06:00→22:31)
[2018-04-26] MEDS: AMMONIUM LACTATE 12% LOTION 225 GM BOTTLE TP SCH ×2 (10:35→22:32)
[2018-04-26] MEDS: PRENATAL VITAMINS W/ FOLIC ACID TABLET (FP) PO SCH (10:35)
[2018-04-26] MEDS: BRIMONIDINE TARTRATE 0.2% OPHTHALMIC 5 ML BOTTLE OU SCH ×2 (10:35→22:31)
[2018-04-26] MEDS: DORZOLAMIDE 2% HCL OPHTHALMIC SOLUTION 10 ML BOTTLE OU SCH ×2 (10:36→22:31)
[2018-04-26] MEDS: NICOTINE 14 MG/24 HOURS TOPICAL PATCH TD SCH (10:36)
--- NOTE | 2018-04-26 14:00 | PN ---
S CIWA - CIWA Score Nausea/Vomitin Muscle Tremors: 4-Moderate,w/Arms Extend Anxiety: 3 Agitation: 3 Paroxysmal Sweats: 3 Orientation: 0-Oriented Tacttile Disturbances: 1-Very Mild Itch/Numbness Auditory Disturbances: 0-None Visual Disturbances: 0-None Headache: 1-Very Mild CIWA-Ar Total Score: 18 BHS Progress Note (SOAP) Subjective: Sweating, chills, tremor, interrupted sleep Objective: 04/26/18 13:58 Last Vital Signs Temp Pulse Resp BP Pulse Ox 97.2 F L 74 18 113/69 04/26/18 09:49 04/26/18 09:49 04/26/18 09:49 04/26/18 09:49 Laboratory Tests 04/24/18 04/25/18 04/25/18 23:50 07:50 07:50 WBC 5.6 RBC 3.54 L Hgb 12.5 Hct 36.6 MCV 103.4 H MCH 35.4 H MCHC 34.3 RDW 15.7 D Plt Count 209 MPV 8.4 D Sodium 140 Potassium 4.2 Chloride 104 Carbon Dioxide 29 Anion Gap 7 L BUN 15 D Creatinine 0.5 L Creat Clearance w eGFR > 60 Random Glucose 83 D Calcium 8.2 L Total Bilirubin 0.6 AST 19 D ALT 14 D Alkaline Phosphatase 133 H D Total Protein 6.5 Albumin 3.2 L Urine Color Yellow Urine Appearance Clear Urine pH 5.0 Ur Specific [place] 1.018 Urine Protein Negative Urine Glucose (UA) Negative Urine Ketones Negative Urine Blood Negative Urine Nitrite Negative Urine Bilirubin Negative Urine Urobilinogen 2.0 Ur Leukocyte Esterase Negative RPR Titer 04/25/18 07:50 WBC RBC Hgb Hct MCV MCH MCHC RDW Plt Count MPV Sodium Potassium Chloride Carbon Dioxide Anion Gap BUN Creatinine Creat Clearance w eGFR Random Glucose Calcium Total Bilirubin AST ALT Alkaline Phosphatase Total Protein Albumin Urine Color Urine Appearance Urine pH Ur Specific [place] Urine Protein Urine Glucose (UA) Urine Ketones Urine Blood Urine Nitrite Urine Bilirubin Urine Urobilinogen Ur Leukocyte Esterase RPR Titer Nonreactive Labs reviewed Assessment: 04/26/18 13:58 Withdrawal symptoms Plan: Continue detox Encouraged PO hydration (water)
[2018-04-26] MEDS: THIAMINE HCL 100 MG TABLET (FP) PO SCH (22:31)
[2018-04-26] MEDS: LATANOPROST 0.005% OPHTH SOLN 2.5ML BOTTLE OS SCH (22:32)
[2018-04-27] MEDS ORDERED: chlordiazePOXIDE HCL 10 MG CAPSULE PO SCH (05:00)
[2018-04-27] MEDS: chlordiazePOXIDE 5 MG CAPSULE PO SCH ×4 (06:41→22:27)
[2018-04-27] MEDS: BRIMONIDINE TARTRATE 0.2% OPHTHALMIC 5 ML BOTTLE OU SCH ×2 (10:20→22:26)
[2018-04-27] MEDS: AMMONIUM LACTATE 12% LOTION 225 GM BOTTLE TP SCH ×2 (10:21→22:42)
[2018-04-27] MEDS: PRENATAL VITAMINS W/ FOLIC ACID TABLET (FP) PO SCH (10:21)
[2018-04-27] MEDS: NICOTINE 14 MG/24 HOURS TOPICAL PATCH TD SCH (10:21)
[2018-04-27] MEDS: DORZOLAMIDE 2% HCL OPHTHALMIC SOLUTION 10 ML BOTTLE OU SCH ×2 (10:22→22:26)
--- NOTE | 2018-04-27 14:41 | PN ---
BHS Progress Note (SOAP) Subjective: Sleep disturbance Sweats Shakes Objective: 04/27/18 14:40 A & O x 3 Ambulates with a cane Vital Signs Temperature 95.9 F L 04/27/18 13:09 Pulse Rate 65 04/27/18 13:09 Respiratory Rate 18 04/27/18 13:09 Blood Pressure 101/68 04/27/18 13:09 O2 Sat by Pulse Oximetry (%) Assessment: 04/27/18 14:41 withdrawal sx Plan: continue detox continue increased hydration
[2018-04-27] MEDS: THIAMINE HCL 100 MG TABLET (FP) PO SCH (22:27)
[2018-04-27] MEDS: LATANOPROST 0.005% OPHTH SOLN 2.5ML BOTTLE OS SCH (22:27)
[2018-04-28] MEDS ORDERED: chlordiazePOXIDE HCL 10 MG CAPSULE PO SCH (05:00)
[2018-04-28 09:14] VITALS: BP 98/62; PULSE 68; TEMP 96.3
--- NOTE | 2018-04-28 22:32 | PN ---
BHS Progress Note (SOAP) Subjective: Patient denies current Detox symptoms and reports that he feels well overall. Objective: PATIENT A & O X 3, OBSERVED AMBULATING ON UNIT WITH ASSISTANCE OF A CANE. NO ACUTE DISTRESS. 04/28/18 22:31 Vital Signs Temperature 96.3 F L 04/28/18 09:12 Pulse Rate 68 04/28/18 09:12 Respiratory Rate 18 04/28/18 09:12 Blood Pressure 98/62 04/28/18 09:12 O2 Sat by Pulse Oximetry (%) Laboratory Tests 04/24/18 04/25/18 04/25/18 23:50 07:50 07:50 WBC 5.6 RBC 3.54 L Hgb 12.5 Hct 36.6 MCV 103.4 H MCH 35.4 H MCHC 34.3 RDW 15.7 D Plt Count 209 MPV 8.4 D Sodium 140 Potassium 4.2 Chloride 104 Carbon Dioxide 29 Anion Gap 7 L BUN 15 D Creatinine 0.5 L Creat Clearance w eGFR > 60 Random Glucose 83 D Calcium 8.2 L Total Bilirubin 0.6 AST 19 D ALT 14 D Alkaline Phosphatase 133 H D Total Protein 6.5 Albumin 3.2 L Urine Color Yellow Urine Appearance Clear Urine pH 5.0 Ur Specific [place] 1.018 Urine Protein Negative Urine Glucose (UA) Negative Urine Ketones Negative Urine Blood Negative Urine Nitrite Negative Urine Bilirubin Negative Urine Urobilinogen 2.0 Ur Leukocyte Esterase Negative RPR Titer 04/25/18 07:50 WBC RBC Hgb Hct MCV MCH MCHC RDW Plt Count MPV Sodium Potassium Chloride Carbon Dioxide Anion Gap BUN Creatinine Creat Clearance w eGFR Random Glucose Calcium Total Bilirubin AST ALT Alkaline Phosphatase Total Protein Albumin Urine Color Urine Appearance Urine pH Ur Specific [place] Urine Protein Urine Glucose (UA) Urine Ketones Urine Blood Urine Nitrite Urine Bilirubin Urine Urobilinogen Ur Leukocyte Esterase RPR Titer Nonreactive LABS NOTED. Assessment: 04/28/18 22:32 COMPLETION OF DETOX REGIMEN. Plan: PATIENT SCHEDULED FOR DISCHARGE FROM DETOX TODAY.
--- NOTE | 2018-04-28 22:37 | DS ---
[facility] Detox Discharge Summary Admission Date: 04/24/18 Discharge Date: 04/28/18 - History Present History: Alcohol Dependence Additional Comments: PATIENT GOING HOME. PATIENT ADVISED TO CONSIDER LOCAL 12-STEP / AA OUTPATIENT SUPPORT GROUPS FOR AFTERCARE. PATIENT WAS DISCHARGED FROM DETOX UNIT IN STABLE MEDICAL CONDITION. Pertinent Past History: Use of Cane as Ambualtory Aid, Arthritis,Nicotine Dependence, Glaucoma, Asthma. - Physical Exam Results Vital Signs: Vital Signs Temperature 96.3 F L 04/28/18 09:12 Pulse Rate 68 04/28/18 09:12 Respiratory Rate 18 04/28/18 09:12 Blood Pressure 98/62 04/28/18 09:12 O2 Sat by Pulse Oximetry (%) Pertinent Admission Physical Exam Findings: WITHDRAWAL SYMPTOMS. Laboratory Tests 04/24/18 04/25/18 04/25/18 23:50 07:50 07:50 WBC 5.6 RBC 3.54 L Hgb 12.5 Hct 36.6 MCV 103.4 H MCH 35.4 H MCHC 34.3 RDW 15.7 D Plt Count 209 MPV 8.4 D Sodium 140 Potassium 4.2 Chloride 104 Carbon Dioxide 29 Anion Gap 7 L BUN 15 D Creatinine 0.5 L Creat Clearance w eGFR > 60 Random Glucose 83 D Calcium 8.2 L Total Bilirubin 0.6 AST 19 D ALT 14 D Alkaline Phosphatase 133 H D Total Protein 6.5 Albumin 3.2 L Urine Color Yellow Urine Appearance Clear Urine pH 5.0 Ur Specific [place] 1.018 Urine Protein Negative Urine Glucose (UA) Negative Urine Ketones Negative Urine Blood Negative Urine Nitrite Negative Urine Bilirubin Negative Urine Urobilinogen 2.0 Ur Leukocyte Esterase Negative RPR Titer 04/25/18 07:50 WBC RBC Hgb Hct MCV MCH MCHC RDW Plt Count MPV Sodium Potassium Chloride Carbon Dioxide Anion Gap BUN Creatinine Creat Clearance w eGFR Random Glucose Calcium Total Bilirubin AST ALT Alkaline Phosphatase Total Protein Albumin Urine Color Urine Appearance Urine pH Ur Specific [place] Urine Protein Urine Glucose (UA) Urine Ketones Urine Blood Urine Nitrite Urine Bilirubin Urine Urobilinogen Ur Leukocyte Esterase RPR Titer Nonreactive LABS NOTED. - Treatment Hospital Course: Detox Protocol Followed, Detoxed Safely, Responded well, Discharged Condition Good Patient has Accepted a Rehab Referral to: PT. ADVISED TO CONSIDER LOCAL 12-STEP/ AA OUTPATIENT SUPPORT GROUPS. - Medication Discharge Medications: Ambulatory Orders Albuterol Sulfate Inhaler - [Ventolin HFA Inhaler -] 2 inh IH Q4H PRN #1 inhaler 05/25/17 Brinzolamide/Brimonidine Tart [Simbrinza 1%-0.2% Eye Drops] 1 drop OU BID Latanoprost 0.005% Eye Drops [Xalatan 0.005% Eye Drops -] 1 drop OS HS 10/24/17 - Diagnosis (1) Alcohol dependence with uncomplicated withdrawal Status: Acute (2) Depression Status: Chronic Qualifiers: Depression Type: dysthymia Qualified Code(s): F34.1 - Dysthymic disorder (3) Nicotine dependence Status: Chronic Qualifiers: Nicotine product type: cigarettes Substance use status: in withdrawal Qualified Code(s): F17.213 - Nicotine dependence, cigarettes, with withdrawal (4) Osteoarthritis Status: Chronic Qualifiers: Osteoarthritis location: unspecified site Osteoarthritis type: primary Qualified Code(s): M19.91 - Primary osteoarthritis, unspecified site - AMA Did Patient Leave Against Medical Advice: No
== END 2018-04-28 09:40 | disposition home or self-care (01) | DRG 897 ==
LOC: YASAS 19:09 → Y3N 21:58
PROVIDERS: ADMIT Internal Medicine; ATTEND Internal Medicine
PROC: HZ2ZZZZ Detoxification Services for Substance Abuse Treatment (ICD-10-PCS; principal; 2018-04-24)
DX: F10.230 Alcohol dependence with withdrawal, uncomplicated (principal); F17.210 Nicotine dependence, cigarettes, uncomplicated; F34.1 Dysthymic disorder; H40.9 Unspecified glaucoma; J45.909 Unspecified asthma, uncomplicated; L85.3 Xerosis cutis; M19.91 Primary osteoarthritis, unspecified site; R26.89 Other abnormalities of gait and mobility; Z99.89 Dependence on other enabling machines and devices
CPT/HCPCS: 36415; 80053; 81003; 85027; 86593; 93005; 93010

== ENCOUNTER 2019-10-05 03:59 | Emergency (ER) | payer OTHER ==
[2019-10-05 04:20] VITALS: BP 125/73; PULSE 85; TEMP 98.2; BMI 21.9
--- NOTE | 2019-10-05 04:20 | PDOC ---
Attending Attestation - Resident Resident Name: Mckenzie Cook - ED Attending Attestation I have performed the following: I have examined & evaluated the patient, The case was reviewed & discussed with the resident, I agree w/resident's findings & plan - HPI HPI: 10/05/19 23:54 see resident hpi - Physicial Exam PE: 10/05/19 23:54 agree with resident exam - Medical Decision Making 10/05/19 23:54 Patient sent for evaluation of possible G-tube malfunction and hypertension Patient completely asymptomatic and normotensive in the emergency department with normal-appearing G-tube site with only mild localized excoriation Patient signed out to dayshift pending social work/case management evaluation as he is homeless and unable to manage his care outpatient
--- NOTE | 2019-10-05 04:27 | PDOC ---
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 ROS GENERAL/CONSTITUTIONAL: No fever or chills. No weakness. CARDIOVASCULAR: No chest pain or shortness of breath RESPIRATORY: No cough, wheezing, or hemoptysis. GASTROINTESTINAL: No nausea, vomiting, diarrhea or constipation. SKIN: No rash NEUROLOGIC: No headache, vertigo, loss of consciousness, or change in strength/ sensation. PE GENERAL: Awake, alert, and fully oriented, in no acute distress HEAD: No signs of trauma, normocephalic, atraumatic EYES: EOMI, sclera anicteric, conjunctiva clear ENT: oropharynx clear without exudates. Moist mucosa NECK: Normal ROM, supple LUNGS: No distress, speaks full sentences, clear to auscultation bilaterally HEART: Regular rate and rhythm, normal S1 and S2 ABDOMEN: Soft, nontender, + G tube clean, dry, intact, not warm to the touch. MDM DDX including but not limited to: G tube ED Course: Patient normotensive G tube clean, dry, intact Patient desires detox [facility] send to [facility] Mckenzie Cook PGY2 Emergency Medicine Past History - Past Medical History Allergies/Adverse Reactions: Allergies Allergy/AdvReac Type Severity Reaction Status Date / Time Penicillins Allergy Severe Rash Verified 10/05/19 04:20 Home Medications: Ambulatory Orders Albuterol Sulfate Inhaler - [Ventolin HFA Inhaler -] 2 inh IH Q4H PRN #1 inhaler 05/25/17 Brinzolamide/Brimonidine Tart [Simbrinza 1%-0.2% Eye Drops] 1 drop OU BID Latanoprost 0.005% Eye Drops [Xalatan 0.005% Eye Drops -] 1 drop OS HS 10/24/17 Anemia: No Asthma: Yes (Pt is on MDI) Cancer: No Cardiac Disorders: No CVA: No COPD: No CHF: No Dementia: No Diabetes: No GI Disorders: No Disorders: No HTN: No Hypercholesterolemia: No Kidney Stones: No Liver Disease: No Seizures: No Thyroid Disease: No - Surgical History Abdominal Surgery: No Appendectomy: No Cardiac Surgery: No Cholecystectomy: No Lung Surgery: No Neurologic Surgery: No Orthopedic Surgery: No - Reproductive History Testicular Surgery: No - Psycho Social/Smoking Cessation Hx Smoking History: Unknown if ever smoked Have you smoked in the past 12 months: Yes Number of Cigarettes Smoked Daily: 20 Cigars Per Day: 0 'Breaking Loose' booklet given: 04/24/18 Hx Alcohol Use: No Drug/Substance Use Hx: No Substance Use Type: Alcohol Hx Substance Use Treatment: Yes ([facility]) *Physical Exam - Vital Signs Last Vital Signs Temp Pulse Resp BP Pulse Ox 98.2 F 85 16 125/73 97 10/05/19 04:17 10/05/19 04:17 10/05/19 04:17 10/05/19 04:17 10/05/19 04:17 Discharge - Discharge Information Problems reviewed: Yes Clinical Impression/Diagnosis: Hypotension Condition: Stable Disposition: HOME - Admission No - Follow up/Referral - Patient Discharge Instructions Additional Instructions: You were seen in the ED because it was reported that you had a low blood pressure Your blood pressure was within normal here and your G tube does not appear infected. If you have any issues with your G tube in the future, please contact [facility] to find the surgeon who placed your G tube Return to the ED if you experience fevers, chills, drainage from the G tube or any other concerning symptoms. - Post Discharge Activity
--- NOTE | 2019-10-05 07:12 | PDOC ---
*Physical Exam - Vital Signs Last Vital Signs Temp Pulse Resp BP Pulse Ox 98.2 F 85 16 125/73 97 10/05/19 04:17 10/05/19 04:17 10/05/19 04:17 10/05/19 04:17 10/05/19 04:17 Medical Decision Making - Medical Decision Making Pt received as sign out. Pt reportedly did not meet criteria for rehab/detox at [facility] Will discuss case with Case Management when they arrive at 0800 10/05/19 07:09 Pt given outpt resources Plan for D/C w/ PCP f/u Discharge instructions and return precautions given Patient in agreement and verbalized understanding Dispo: Home 10/05/19 12:23 Discharge - Discharge Information Problems reviewed: Yes Clinical Impression/Diagnosis: Alcohol dependence Qualifiers: Substance use status: unspecified alcohol-induced disorder Qualified Code(s): F10.29 - Alcohol dependence with unspecified alcohol-induced disorder Condition: Stable Disposition: HOME - Admission No - Follow up/Referral Referrals: [facility] [place] [Provider Group] - Patient Discharge Instructions Additional Instructions: You were seen in the ED because it was reported that you had a low blood pressure Your blood pressure was within normal here and your G tube does not appear infected. If you have any issues with your G tube in the future, please contact [facility] to find the surgeon who placed your G tube Return to the ED if you experience fevers, chills, drainage from the G tube or any other concerning symptoms. - Post Discharge Activity
== END 2019-10-05 10:30 | disposition home or self-care (01) ==
LOC: JER 03:59
DX: F10.29 Alcohol dependence with unspecified alcohol-induced disorder (principal); I95.9 Hypotension, unspecified; G47.00 Insomnia, unspecified; H54.62 Unqualified visual loss, left eye, normal vision right eye; F17.210 Nicotine dependence, cigarettes, uncomplicated; Z93.1 Gastrostomy status; Y90.9 Presence of alcohol in blood, level not specified
CPT/HCPCS: 99282-25